=== PATIENT | female | born 1930 | race Caucasian/White ===

== ENCOUNTER → 2016-08-19 | Outpatient (CLI) | payer MEDICARE, OTHER ==
[~2016-08-19] MED LIST: ASPI1TAB PO; CALCTAB29 PO; FISH1000 PO; MAGN250T5 PO; MULT1TAB10 PO; PROBCAP4 PO; TYLE500T78 PO; VITA100037 PO
[2016-08-19 10:30] LABS: MEAN CORPUSCULAR HEMOGLOBIN 31.1 pg (27.0-33.0); MEAN CORPUSCULAR HGB CONC 32.8 g/dl (32.0-36.5); MEAN CORPUSCULAR VOLUME 94.8 fl (80.0-96.0); RED CELL DISTRIBUTION WIDTH 11.6 % (11.5-14.5); WHITE BLOOD COUNT 6.8 K/mm3 (4.0-10.0)
[2016-08-19 10:54] LABS: ALBUMIN 3.5 GM/DL (3.2-5.2); ALBUMIN/GLOBULIN RATIO 1.17 (1.00-1.93); ALKALINE PHOSPHATASE 51 U/L (45-117); ALT/SGPT 19 U/L (12-78); ANION GAP 7 MEQ/L (8-16); AST/SGOT 21 U/L (15-37); BILIRUBIN,TOTAL 0.4 MG/DL (0.2-1.0); BLOOD UREA NITROGEN 18 MG/DL (7-18); CALCIUM LEVEL 9.1 MG/DL (8.8-10.2); CARBON DIOXIDE LEVEL 32 MEQ/L (21-32); CHLORIDE LEVEL 102 MEQ/L (98-107); CREATININE FOR GFR 0.74 MG/DL (0.55-1.02); GLOMERULAR FILTRATION RATE > 60.0 (>32); GLUCOSE, FASTING 94 MG/DL (83-110); SODIUM LEVEL 141 MEQ/L (136-145); TOTAL PROTEIN 6.5 GM/DL (6.4-8.2)
[2016-08-19 11:02] LABS: INR 0.93
--- NOTE | 2016-08-19 11:10 | REP ---
Chest x-ray: Two views. History: Tachycardia. Diverticulitis. Comparison chest x-ray is from August 10, 2013. Findings: The lungs are symmetrically aerated and clear. The pleural angles are sharp. Heart is not enlarged. Pulmonary vasculature is not increased. There are minimal degenerative changes in the thoracic spine. No other bony abnormality is appreciated. Impression: No active disease. Signed by Doc Milan MD 08/19/2016 02:23 P
--- NOTE | 2016-08-19 23:13 | ECGEPIP ---
Stationary ECG Study [facility] Test Date: 2016-08-19 Pat Name: RADHA MERCEDES Department: Room: - Gender: F [employer] Agent: : [id number] Requested By: Yari Del Real Order Number: [id number] Reading MD: Obie Harris Measurements Intervals Man Rate: 64 P: 78 DC: 185 QRS: 47 QRSD: 80 T: 63 QT: 400 QTc: 413 Interpretive Statements SINUS RHYTHM POSSIBLE LEFT ATRIAL ENLARGEMENT POSSIBLE LEFT VENTRICULAR HYPERTROPHY POSSIBLE SEPTAL MYOCARDIAL INFARCTION, OF INDETERMINATE AGE NO PRIOR Electronically Signed On 08-19-2016 23:12:43 EST by Obie Harris
== END | disposition home or self-care (01) ==
LOC: M ADMPAT 09:01 → EDSTATUS 09:30
PROVIDERS: ATTEND Orthopaedic Surgery
DX: Z01.818 Encounter for other preprocedural examination (principal); M16.11 Unilateral primary osteoarthritis, right hip; R94.31 Abnormal electrocardiogram [ECG] [EKG]; Z79.899 Other long term (current) drug therapy; Z79.01 Long term (current) use of anticoagulants

== ENCOUNTER 2016-08-31 06:59 | Inpatient (IN) | payer MEDICARE, OTHER ==
[2016-08-19 10:09] VITALS: BP 120/60
--- NOTE | 2016-08-27 16:59 | HPE ---
DATE OF ADMISSION: 08/31/2016 ATTENDING PHYSICIAN: Dr. Beavers. CHIEF COMPLAINT: Right hip pain and stiffness. HISTORY: Negra is a pleasant 86-year-old female with progressively worsening right hip pain and stiffness. She has failed to improve with conservative management. She has elected for surgery for her continued symptoms with weightbearing activities and activities of daily living. She has consented for a right total hip arthroplasty be Dr. Beavers. Medical optimization pending with Dr. Villalpando and is not present for review during today's visit. CURRENT MEDICATIONS: Daily multivitamin, calcium, vitamin D, fish oil, daily aspirin, probiotics, Extra Strength Tylenol as needed. ALLERGIES: No known drug allergies. PAST MEDICAL HISTORY: 1. Diverticulitis. 2. Elevated heart rate. PAST SURGICAL HISTORY: 1. Partial hysterectomy. 2. Appendectomy. SOCIAL HISTORY: The patient is a nonsmoker and occasionally consumes alcohol. REVIEW OF SYSTEMS: The patient denies fevers, chills, nausea, vomiting, or diarrhea. She denies shortness of breath or cough. She denies any recent urinary tract infection symptoms. She did have a recent sinus infection but that has cleared up. She does have persistent pain in the right hip with weightbearing activities. PHYSICAL EXAMINATION: Well-nourished, well-developed, pleasant female in no apparent distress. She is walking with the use of a cane, favoring her right side. The skin of the right hip is intact. She does have limited motion and irritability elicited with range of motion at the hip and groin. Her right lower extremity strength is normal. Her calf is soft, nontender to palpation with no palpable cords noted. NECK: Supple without lymphadenopathy or jugular venous distention. No carotid bruits noted. LUNGS: Clear to auscultation bilaterally without rales or wheezes. HEART: Regular rate and rhythm. ABDOMEN: Bowel sounds are present. Abdomen is soft and nontender to palpation. VITAL SIGNS: Height 5 feet, 3-1/2 inches. Weight 107.2 pounds. Temperature 98, blood pressure 110/70, pulse 60, respiratory rate 14. LABORATORY DATA: Chest x-ray shows no acute disease. EKG shows sinus rhythm with possible left atrial enlargement, possible left ventricular hypertrophy, and possible septal VA, age indeterminate. Nasal swabs were notable for positive Moraxella catarrhalis which was treated per protocol. Urinalysis is normal with no growth on urine culture. Comprehensive metabolic profile: Fasting glucose 94, BUN 18, creatinine 0.74, GFR greater than 60, sodium 141, potassium 4, chloride 102, carbon dioxide 32, anion gap decreased at 7, calcium 9.1, AST 21, ALT 19, alkaline phosphatase 51, total bilirubin 0.4, total protein 6.5, albumin 3.5, albumin globulin ratio 1.17. Complete blood count: WBC 6.8, RBC 4.32, hemoglobin 13.4, hematocrit 40.9, platelet count 233, prothrombin time 12.6, INR 0.93, erythrocyte sedimentation rate 12. DIAGNOSIS: Symptomatic osteoarthritis of the right hip. X-rays off the right hip notable for end-stage degenerative changes. PLAN: The patient has consented for a right total hip arthroplasty by Dr. Beavers. JOSE
[~2016-08-31] VITALS: Ht 162.6 cm; Wt 49.4 kg
[2016-08-31] MEDS ORDERED: LR 1,000 ML IV SCH ×3 (07:30→12:30)
[2016-08-31] MEDS ORDERED: ACETAMINOPHEN 500 MG TAB PO ONE (08:00)
[2016-08-31] MEDS ORDERED: MUPIROCIN 2% SCH (09:00)
[2016-08-31] MEDS ORDERED: [UNRECOGNIZED DRUG - OTHER] PO SCH (09:00)
[2016-08-31] MEDS ORDERED: EPINEPHrine INJ 1 MG/ML 1ML VIAL/AMP As Ordered ONE (09:25)
[2016-08-31] MEDS ORDERED: ceFAZolin 1GM INJ (J0690) As Ordered ONE (09:25)
[2016-08-31] MEDS ORDERED: ONDANSETRON 4MG/2ML VIAL (J2405) As Ordered ONE (10:41)
[2016-08-31] MEDS ORDERED: LIDOCAINE 2% INJ 100 MG/5 ML SDV (FOR ANES.) As Ordered ONE (10:41)
[2016-08-31] MEDS ORDERED: PROPOFOL 200 MG/20 ML VIAL As Ordered ONE (10:41)
[2016-08-31] MEDS ORDERED: ePHEDrine SULFATE 25 MG/5 ML(5MG/ML) SYRINGE As Ordered ONE (10:43)
[2016-08-31] MEDS ORDERED: MORPHINE PCA 1MG/ML 100ML CADD As Ordered ONE (11:58)
[2016-08-31] MEDS ORDERED: ACETAMINOPHEN TAB 650MG DOSE (2X325MG) PO PRN (12:30)
[2016-08-31] MEDS ORDERED: EPIDURAL/PCA KEYS XX PRN (12:30)
[2016-08-31] MEDS ORDERED: NALOXONE INJ 0.4 MG/1 ML VIAL (J2310) IV PRN (12:30)
[2016-08-31] MEDS ORDERED: ONDANSETRON 4MG/2ML VIAL (J2405) IV PRN ×2 (12:30)
[2016-08-31] MEDS ORDERED: fentaNYL 100 MCG/2 ML INJECTION (J3010) IV PRN (12:30)
[2016-08-31] MEDS ORDERED: diphenhydrAMINE INJ 50MG/ML VIAL (J1200) IV PRN (12:30)
[2016-08-31] MEDS ORDERED: FLEET ENEMA PR PRN (12:30)
[2016-08-31] MEDS ORDERED: MORPHINE PCA 1MG/ML 100ML CADD IV PRN (12:30)
[2016-08-31] MEDS ORDERED: NALBUPHINE HCL 10 MG/ML AMP (J2300) IV PRN (12:30)
[2016-08-31] MEDS ORDERED: MORPHINE 2 MG/ML 1ML SYRINGE IV PRN (12:30)
[2016-08-31] MEDS ORDERED: ceFAZolin 1GM INJ (J0690) IR ONE (14:09)
[2016-08-31 15:10] VITALS: BP 126/58
--- NOTE | 2016-08-31 15:28 | CR ---
DATE OF CONSULTATION: 08/31/2016 CONSULTATION REPORT FOR: Dr. Beavers REASON FOR CONSULTATION: Medical management. PRIMARY CARE PROVIDER: Dr. Villalpando HISTORY OF PRESENT ILLNESS: This patient is an 86-year-old female with a past medical history significant for osteoporosis who presented to [facility] on 08/31/2015 for a right hip replacement. The patient tolerated the surgery well. No complications. The hospitalist team is called for consultation. ALLERGIES: PROCHLORPERAZINE. PAST MEDICAL HISTORY: 1. Osteoporosis. 2. Diverticulitis in 2013. PAST SURGICAL HISTORY: 1. Right eye cataract surgery. 2. Hysterectomy. SOCIAL HISTORY: Denies smoking. Drinks wine intermittently. No recreational drug use. REVIEW OF SYSTEMS: GENERAL: No fever. No chills. HEENT: No vision changes. No auditory changes. CARDIOVASCULAR: No chest pain. No palpitations. RESPIRATORY: No wheezes, cough, or sputum production. GASTROINTESTINAL: No nausea. No vomiting. No abdominal pain. MUSCULOSKELETAL: The patient had a right hip replacement today. Otherwise, no joint pain or muscle pain. NEUROLOGIC: No numbness or tingling. PHYSICAL EXAMINATION: VITAL SIGNS: Temperature is 98, pulse is 80, respiratory rate is 16, blood pressure 115/56, pulse oximetry is 99% with two liter nasal cannula. GENERAL: No sign of acute distress, alert and oriented times three. HEENT: Normocephalic, atraumatic. Extraocular motor grossly intact. CARDIOVASCULAR: Positive S1, S2, regular rate. LUNGS: Clear to auscultation bilaterally. ABDOMEN: Soft, nontender, nondistended. Bowel sounds present. No rebound. No guarding. EXTREMITIES: Sequential compression device and thromboembolic-deterrent stockings (TEDS) in place. No lower extremity edema. No sign of cyanosis. LABORATORY DATA: WBC 6.8, hemoglobin is 13.4, hematocrit is 40.9, platelet count is 233. Sodium is 141, potassium 4, chloride is 102, carbon dioxide 32, BUN 18, creatinine 0.74, GFR greater than 60, fasting glucose 94, calcium is 9.1, total bilirubin is 0.4, AST is 21, ALT is 19, alkaline phosphatase is 51, total protein is 6.5, albumin is 3.5. ASSESSMENT AND PLAN: 1. Right hip replacement. The procedure was done by Dr. Beavers on 08/31/2016. We will refer the patient's anticoagulation, diet, exercise level, and pain control to the primary team. 2. History of osteoporosis. 3. History of diverticulitis in 2013. Currently, no gastrointestinal (GI) symptoms. 4. Deep vein thrombosis (DVT) prophylaxis, per primary team.
[2016-08-31 15:40] VITALS: BP 120/58
[2016-08-31 16:40] VITALS: BP 123/57
[2016-08-31] MEDS ORDERED: WARFARIN SOD 5 MG TAB PO ONE (17:00)
[2016-08-31] MEDS: LR 1,000 ML IV SCH (17:14)
[2016-08-31 17:40] VITALS: BP 120/60
[2016-08-31 18:40] VITALS: BP 120/58
--- NOTE | 2016-08-31 18:57 | RO ---
DATE OF PROCEDURE: 08/31/2016 PREOPERATIVE DIAGNOSIS: Right hip degenerative arthritis. POSTOPERATIVE DIAGNOSIS: Right hip degenerative arthritis. PROCEDURE: Right total hip arthroplasty using a size 7 standard offset with a +5 neck and a 36 head with a 54 Gription sector cup. Prosthesis was a [employer] made by [employer]. SURGEON: Yari Beavers MD INDUSTRIAL SALES REPRESENTATIVE: LIBERTY Solo ANESTHESIA: Spinal. ESTIMATED BLOOD LOSS: 200 mL. COMPLICATIONS: None. SPECIMENS: Femoral head. DESCRIPTION OF PROCEDURE: After antibiotics were given intravenously preoperatively and a successful spinal anesthetic was induced, she was placed in a lateral decubitus position after a Busch catheter was placed. The [place] hip positioner was utilized, down leg well padded, especially the peroneal nerve and an axillary roll was utilized. Her right hip area was prepped and draped in the usual sterile fashion. After an appropriate time out, a longitudinal incision was made for direct lateral approach to the hip. Bovie cautery was used to coagulate crossing vessels down to the tensor fascia. The tensor fascia was divided in line with the skin incision. Then we split the gluteus medius, anterior one-third, posterior two-third junction. We carefully dissected the underlying gluteus minimus and hip capsule, then carefully dissected it off the trochanter proximally as we externally rotated and dislocated the hip anteriorly. Then we put the hip in a leg bag anteriorly. The starter reamer was placed in the piriformis fossa followed by the canal finding reamer and then the lateralizing reamer. Then we reamed up to a size 7 reamer, proximal neck osteotomy was performed. Box osteotome was placed to set version, and then we used the broach to broach up to a size 7. Calcar planar was used. We then exposed the acetabulum, performed a 360 degree excision of the labrum and the posterior inferior capsule and then began reaming starting at 48 mm and we advanced up to 53. 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 We then asked for the real Gription cup and used the extramedullary alignment jig to be sure that we had appropriate version and flexion of the cup and then the cup was applied and it fit actually very nicely. It bottomed out nicely, no need for secondary screw fixation was felt needed. And thus I placed the central hole eliminator, then placed the real polyethylene cup and it seated nicely after irrigating out the acetabulum. Then I exposed the proximal femur, irrigated out the femur, placed a #7 broach and then reduced the hip with a +5 x 36 head. It had very good stability in flexion internal rotation and extension external rotation. At the very extreme of external rotation, her neck would just touch the posterior aspect of the acetabulum but it was quite extreme. She had very good stability with flexion and internal rotation and with adduction. There was just some trace telescoping, thus I did not think more leg length was needed or a higher offset stem. At this point, we elected to go with those trial components. All of the trial components were removed. We copiously irrigated out the femoral canal and placed the real #7 stem. We dried the trunnion and placed the 36 ball with a +5 neck and then reduced the hip, irrigated, then closed the gluteus medius and minimus and anterior capsule back anatomically to the trochlea with interrupted #1 PDS sutures, irrigating between layers, and closed the extensor fascia with interrupted #1 PDS sutures, irrigating between layers and closed the subdermal tissues with interrupted #2-0 PDS sutures and the skin was closed with khushbu. Covered by Adaptic dry sterile bulky dressing. She was then turned supine and then transferred to the recovery room in stable condition. There were no intraoperative complications. Braeden Briscoe, my assistant child care teacher, was critical to the success of this procedure by helping to control the soft tissue retractions and helped to reduce and dislocate the hip several times throughout the operation, helped to close the wound, helped to prepare the patient preoperatively, amongst many other tasks.
[2016-08-31 22:00] VITALS: BP 102/50
[2016-08-31] MEDS: TMP DS PO SCH (22:28)
[2016-08-31] MEDS: SULFAMETHOXAZOLE PO SCH (22:28)
[2016-08-31] MEDS: MUPIROCIN TOP SCH (22:29)
[2016-09-01] MEDS: LR 1,000 ML IV SCH (02:31)
[2016-09-01 06:00] VITALS: BP 108/50
[2016-09-01] MEDS ORDERED: PERCOCET 5MG/325MG TAB PO PRN (06:45)
[2016-09-01] MEDS ORDERED: PERCOCET 5MG/325MG TAB PO ONE (06:45)
[2016-09-01] MEDS ORDERED: ONDANSETRON 4 MG TAB (S0181) PO PRN (06:45)
[2016-09-01 07:10] LABS: MEAN CORPUSCULAR HEMOGLOBIN 31.2 pg (27.0-33.0); MEAN CORPUSCULAR HGB CONC 33.3 g/dl (32.0-36.5); MEAN CORPUSCULAR VOLUME 93.7 fl (80.0-96.0); RED CELL DISTRIBUTION WIDTH 11.8 % (11.5-14.5); WHITE BLOOD COUNT 9.8 K/mm3 (4.0-10.0)
[2016-09-01 07:20] LABS: INR 1.58
[2016-09-01 07:23] LABS: ANION GAP 9 MEQ/L (8-16); BLOOD UREA NITROGEN 9 MG/DL (7-18); CALCIUM LEVEL 8.3 MG/DL (8.8-10.2); CARBON DIOXIDE LEVEL 29 MEQ/L (21-32); CHLORIDE LEVEL 100 MEQ/L (98-107); CREATININE FOR GFR 0.78 MG/DL (0.55-1.02); GLOMERULAR FILTRATION RATE > 60.0 (>32); GLUCOSE, FASTING 130 MG/DL (83-110); POTASSIUM SERUM 4.4 MEQ/L (3.5-5.1); SODIUM LEVEL 138 MEQ/L (136-145)
[2016-09-01] MEDS: PERCOCET 5MG/325MG TAB PO PRN ×2 (09:00→20:03)
[2016-09-01] MEDS: MOM 30ML SUSPENSION UDC PO SCH (09:42)
[2016-09-01] MEDS: MIRALAX *UNIT DOSE* 17GM PACKET PO SCH (09:42)
[2016-09-01] MEDS: SULFAMETHOXAZOLE PO SCH (09:43)
[2016-09-01] MEDS: TMP DS PO SCH (09:43)
[2016-09-01] MEDS: SENOKOT S TAB PO SCH ×2 (09:43→20:03)
[2016-09-01] MEDS: MUPIROCIN TOP SCH (09:45)
[2016-09-01 10:00] VITALS: BP 117/54
--- NOTE | 2016-09-01 10:40 | REP ---
RIGHT HIP, THREE VIEWS: HISTORY: Hip replacement. The patient is status post right hip arthroplasty. There is no acute fracture or dislocation. Subcutaneous air and surgical khushbu are present in the overlying soft tissue. IMPRESSION: The patient is status post right hip arthroplasty. There is anatomic alignment. Signed by Ahmet Golden MD 09/01/2016 10:43 A
[2016-09-01 14:00] VITALS: BP 98/55
--- NOTE | 2016-09-01 14:15 | IPNPDOC ---
Text Note Date of Service The patient was seen on 09/01/16. NOTE Subjective: Patient is an 86 year old female with a PMHx of osteoporosis who presented for an elective right hip replacement. Patient was seen and examined at the bedside. She has no new complaints today. Objective: Vitals (See below) General: Lying in bed, no acute distress, comfortable, AAOx3 HEENT: NC, AT CVS: RRR, +S1S2 Lungs: Fair air entry b/l, -w/r/r Abdomen: Soft, ND, NT, +BSx4 Extremities: +PPx4, -edema, -calf tenderness Assessment and plan: 1. Right hip replacement - Patient is tolerating surgery - will get physical therapy evaluation today - pain control by primary team 2. Hx of osteoporosis 3. Hx of diverticulosis in 2013 - no symptoms at this time 4. DVT prophylaxis - as per primary team VS,Fishbone, I+O VS, Fishbone, I+O Laboratory Tests 09/01/16 06:46 Calcium Level 8.3 L, Red Blood Count 3.49 L, Mean Corpuscular Volume 93.7, Mean Corpuscular Hemoglobin 31.2, Mean Corpuscular Hemoglobin Concent 33.3, Red Cell Distribution Width 11.8 Vital Signs Date Time Temp Pulse Resp B/P Pulse Ox O2 Delivery O2 Flow Rate FiO2 09/01/16 10:00 97.7 74 16 117/54 96 Room Air 08/31/16 19:50 2.0 I&O- Last 24 Hours up to 6 AM 09/01/16 06:00 Intake Total 3790 ml Output Total 700 ml Balance 3090 ml MOJGAN HERRERA MD Sep 01, 2016 14:15
[2016-09-01] MEDS ORDERED: WARFARIN SOD 5 MG TAB PO ONE (17:00)
[2016-09-01] MEDS ORDERED: WARFARIN SOD 2.5 MG TAB PO ONE (17:00)
[2016-09-01 22:00] VITALS: BP 115/50
[2016-09-02 06:00] VITALS: BP 98/60
[2016-09-02] MEDS ORDERED: ONDA1TAB15 PO (06:46)
[2016-09-02] MEDS ORDERED: PERCOCET PO (06:46)
[2016-09-02] MEDS ORDERED: MAPA325T2 PO (06:46)
[2016-09-02] MEDS ORDERED: MILKSUS PO (06:46)
[2016-09-02] MEDS ORDERED: SENN1TAB2 PO (06:46)
[2016-09-02] MEDS ORDERED: FLEEENE4 PR (06:46)
[2016-09-02] MEDS ORDERED: PEG1POW PO (06:46)
[2016-09-02 06:57] LABS: MEAN CORPUSCULAR HEMOGLOBIN 31.4 pg (27.0-33.0); MEAN CORPUSCULAR HGB CONC 33.1 g/dl (32.0-36.5); MEAN CORPUSCULAR VOLUME 94.7 fl (80.0-96.0); RED CELL DISTRIBUTION WIDTH 12.2 % (11.5-14.5); WHITE BLOOD COUNT 9.4 K/mm3 (4.0-10.0)
[2016-09-02 07:00] LABS: INR 2.4
[2016-09-02 07:15] LABS: ANION GAP 9 MEQ/L (8-16); BLOOD UREA NITROGEN 10 MG/DL (7-18); CALCIUM LEVEL 8.4 MG/DL (8.8-10.2); CARBON DIOXIDE LEVEL 29 MEQ/L (21-32); CHLORIDE LEVEL 102 MEQ/L (98-107); CREATININE FOR GFR 0.75 MG/DL (0.55-1.02); GLOMERULAR FILTRATION RATE > 60.0 (>32); GLUCOSE, FASTING 108 MG/DL (83-110); POTASSIUM SERUM 4.6 MEQ/L (3.5-5.1); SODIUM LEVEL 140 MEQ/L (136-145)
[2016-09-02] MEDS: SENOKOT S TAB PO SCH (09:00)
[2016-09-02] MEDS: MIRALAX *UNIT DOSE* 17GM PACKET PO SCH (10:20)
[2016-09-02] MEDS: PERCOCET 5MG/325MG TAB PO PRN (10:21)
[2016-09-02] MEDS: MOM 30ML SUSPENSION UDC PO SCH (10:21)
[2016-09-02 10:26] VITALS: BP 105/54
--- NOTE | 2016-09-07 07:40 | DSES ---
DATE OF ADMISSION: 08/31/2016 DATE OF DISCHARGE: 09/02/2016 ADMISSION DIAGNOSIS: Osteoarthritis right hip. OTHER DIAGNOSES: History of diverticulosis, osteoporosis, elevated heart rate. DISCHARGE DIAGNOSIS: Osteoarthritis right hip, status post right total hip arthroplasty. ATTENDING PHYSICIAN: Yari Beavers MD HISTORY: This is a pleasant 86-year-old female patient with progressively worsening right hip pain and stiffness. She failed to improve with conservative management. She was admitted for elective hip replacement on right side. OPERATION PERFORMED: Right total hip arthroplasty. HOSPITAL COURSE: The patient was admitted on day of surgery, underwent a right total hip arthroplasty which was uneventful. During the postoperative period she did struggle with the requirements for physical therapy and her goals for ambulation. Due to her continued struggles with the requirements of physical therapy, she was discharged to the [facility] rehabilitation unit for further rehab and treatment. On day of discharge her pain was controlled. She will use oral pain medications for pain control. She will use adjusted dose Coumadin and HIRAM stockings for 30 days postoperative for deep venous thrombosis (DVT) prophylaxis. She is weightbearing as tolerated on the right lower extremity. She will follow up in our office in 10-14 days for surgical followup. She will resume her preoperative medications and diet. She was given instructions to include but not limited to wound monitoring, activity limitations and her total hip precautions. Please refer to the medical record further details.
== END 2016-09-02 11:45 | DRG 470 ==
LOC: M OR 06:59 → M MS5PR 15:05
PROVIDERS: ADMIT Orthopaedic Surgery; ATTEND Orthopaedic Surgery
PROC: 0SR902A Replacement of Right Hip Joint with Metal on Polyethylene Synthetic Substitute, Uncemented, Open Approach (ICD-10-PCS; principal; 2016-08-31 09:40)
DX: M16.11 Unilateral primary osteoarthritis, right hip (principal); R26.9 Unspecified abnormalities of gait and mobility; M81.0 Age-related osteoporosis without current pathological fracture; Z79.82 Long term (current) use of aspirin; Z79.899 Other long term (current) drug therapy

== ENCOUNTER 2016-09-02 11:21 | Inpatient (IN) | payer MEDICARE, OTHER ==
[~2016-09-02] VITALS: Ht 161.3 cm; Wt 51.5 kg
[~2016-09-02 11:21] MED LIST changes: +FLEEENE4 PR; +MAPA325T2 PO; +MILKSUS PO; +ONDA1TAB15 PO; +PEG1POW PO; +PERCOCET PO; +SENN1TAB2 PO
[2016-09-02 11:45] VITALS: BP 99/53
[2016-09-02] MEDS ORDERED: PERCOCET 5MG/325MG TAB PO PRN ×2 (13:00)
[2016-09-02] MEDS ORDERED: MOM 30ML SUSPENSION UDC PO PRN (13:00)
[2016-09-02] MEDS ORDERED: MIRALAX *UNIT DOSE* 17GM PACKET PO PRN (13:00)
--- NOTE | 2016-09-02 13:57 | HPEPDOC ---
Barrel Bung Remover And Dumper Note ADMISSION H&P + EDISON DATE OF ADMISSION: 09/02/2016 DATE OF SERVICE: 09/02/2016 IDENTIFICATION STATEMENT: Patient is an 86-year-old woman status post right total hip arthroplasty admitted for copper incidents of integrated inpatient rehabilitation. Thereve been no significant changes in the patients condition since the preadmission screening. HISTORY OF PRESENT ILLNESS: Patient is an 86-year-old woman with a history of osteoporosis, diverticulitis and osteoarthritis who was experiencing progressive right hip pain due to advanced degenerative joint disease. Symptoms were refractory to conservative treatment and interfering with patients functional ability. On 06/30/2017 the patient underwent right total hip arthroplasty postoperative course is notable for anemia, hyperglycemia and hypocalcemia. Due to significant decline in the patients baseline functional status and need for continued medical care, recommendation was for acute rehabilitation. On 09/02/2016 patient was deemed stable for discharge to [facility] inpatient rehabilitation unit. On evaluation the patient today she reports feeling well. She has not yet moved her bowels since being in the hospital. She reports moderate to severe pain in the right hip with activity, mostly remits with rest. She reports urinary frequency, increased from her baseline, but denies any chills, dysuria or incontinence. PAST MEDICAL HISTORY: Diverticulosis with 2 bouts of diverticulitis in the last 4 years Osteoporosis Osteoarthritis Panic attacks PAST SURGICAL HISTORY: Total hysterectomy (still has bilateral ovaries) Appendectomy ALLERGIES: Prochlorperazine MEDICATIONS: Coumadin dose daily X line milk of magnesia 30 mL by mouth daily Senokot-S 1 by mouth twice a day Polyethylene glycol 1 packet by mouth daily Acetaminophen 650 mg by mouth every 4 hours when necessary Percocet 1-2 tabs by mouth every 4 hours when necessary Zofran 4 mg by mouth every 4 hours when necessary Fleets enema 1 per rectum daily as needed FAMILY HISTORY: She has 3 children, 2 daughters and one son alive and well. Her , suffered from multiple sclerosis. SOCIAL HISTORY: Patient lives alone in a single-story house with full basement, there are steps, but she does have a ramp. She states she tried smoking once as a youngster, but didnt like it and has never smoked since. She reports occasional alcohol use sliding an occasional glass of wine or beer. She denies any illicit drug use, past or present. Review of Systems: General: no chills, +fatigue, no weight changes. Eyes: no change of vision, + bifocals. Ears, Nose & Throat: + hearing loss with hearing aids, no sore throat or nasal discharge. Cardiovascular: Episodic palpitations for which she underwent a cardiac evaulation with Dr. Harris. No chest pain, claudication, edema, syncopal episodes. Pul: no cough, SOB GI: +constipation; no abdominal pain, GERD, vomiting, BRBPR/tarry stools, incontinence. Genitourinary: +frequency. Gynecological: no vaginal bleeding, post-menopausal . Musculoskeletal: History of neck pain from whiplash injury that resolved: Denies chronic back/neck, no muscle pain. Neurological: no numbness, paresthesias, no tremors, progressive weakness, seizures, AGUILLON. Hematological: No bleeding disorders. Skin: no rashes. Psychiatric: no depression or behavioral issues. VITAL SIGNS: Temperature 98.5F, pulse 85, respiratory rate of 18, blood pressure 99/53, 93% saturation on room air. PHYSICAL EXAMINATION: GENERAL: Well nourished, well developed, sitting up in bed, no acute distress. HEENT: Normocephalic, atraumatic. No facial droop. No jugular venous distention (JVD). PERRL, EOMI CARDIOVASCULAR: S1, S2, regular rate. Mild right lower limb swelling, no right calf tenderness. No left lower limb edema or calf tenderness. LUNGS: Clear to auscultation bilaterally no wheezing, rhonchi or rales ABDOMEN: Soft, nontender, nondistended. Positive normoactive bowel sounds throughout. MUSCULOSKELETAL: Manual muscle testin/5 strength bilateral upper limbs in all major muscle groups. 5/5 strength left lower limb in all major muscle groups. 1/5 right hip flexors, 4/5 right knee extension, 5/5 right knee flexion , dorsiflexion and plantar flexion. Sensation: Intact to soft touch bilateral upper and lower limbs. Deep tendon reflexes: Unable to elicit patellar biceps bilaterally NEUROLOGICAL: Alert and oriented x 3. Answers all questions appropriately able to follow commands without difficulty. SKIN: Right lateral hip and thigh surgical incision covered with OptiFoam (not removed), no visible drainage LABORATORY DATA: 09/02/2016: WBC count 9.4, hemoglobin 10.7, hematocrit 32.4, platelets 188 sodium 140, potassium 4.6, chloride 102, carbon dioxide 29, he UN 10, creatinine 0.75, GFR greater than 60.0, glucose 108 (down from 1:30) calcium 8.4. 09/02/2016: PT INR 26.2/2.40 IMAGING: Hip x-ray 09/01/2016: status/ post total hip arthroplasty. FUNCTIONAL STATUS: Premorbid: Independent with ADLs and ambulation. Drove regularly. On Admission: Min assist for ambulation 40 feet with rolling walker ASSESSMENT AND PLAN: 1. Advanced degenerative joint disease of the right hip status post total hip arthroplasty with resulting gait abnormality and dysfunctional ADLs: Patient will undergo thorough physical and occupational therapy evaluations followed by daily intensive therapy. Rehabilitation nursing for bladder, bowel, medication management and wound care. 2. DVT prophylaxis: Coumadin to be dose daily by RAIZA Mays of the orthopedic service. Coumadin on hold tonight for supratherapeutic INR. Will provide SCD and HIRAM hose. 3. Constipation: Patient has been taking Senokot-S and received a dose of milk of magnesia O Max. Well change her bowel regimen to Colace and senna scheduled, will add MiraLAX on an as-needed basis. Will continue milk of magnesia on an as-needed basis. Further adjustments as needed. 4. Anemia, acute blood loss: Morning labs. Iron studies pending results. 5. Urinary frequency: Patient currently afebrile without leukocytosis. As stated above Will obtain morning labs with workup as indicated. 6. Hypotension: Patient with 2 readings of relative hypotension. She is currently not on anti-hypertensive medication. Will monitor blood pressure over the next 24 hours along with intake and output. Work-up/treatment as indicated. 7. Pain: Patient reporting moderate to severe pain. Will continue her on her current regimen of acetaminophen along with Percocet on as-needed basis and monitor pain levels closely with medication adjustments as indicated. Will provide her intermittent ice to the right lateral hip. 8. Nutrition: Will obtain a prealbumin human with morning labs. Will also provide patient with ensure supplements. POST ADMISSION PHYSICIAN EVALUATION: On evaluation of the patient today there' ve been no significant medical issues or functional changes as compared to those noted in the preadmission screening document. This patient's inpatient rehabilitation remains necessary in light of the above conditions. The patient' s medical condition requires specialized care with physicians specially trained in physical medicine rehabilitation. The patient is capable motivated to participate in a minimum of 3 hours of therapy daily, 5 days minimum per week, and requires intensive inpatient rehabilitation to improve their functional status so that they can be safely to discharge back to their home. PROGNOSIS: Excellent ESTIMATED LENGTH OF STAY: 7 days. / Vital Signs Vital Sign - Last 24 Hours 09/02/16 11:45 Temp 98.5 Pulse 85 Resp 18 B/P 99/53 Pulse Ox 93 O2 Delivery Room Air Home Medications Scheduled (Senna Plus 8.6-50 mg) 1 Tab Tab 1 TAB PO BID Calcium/Vitamin D (Calcium 500/Vitamin D 500-125 mg-Unit) 1 Tab Tab 500 MG PO DAILY (Reported) Fish Oil (Fish Oil) 1,000 Mg Cap 1,000 MG PO DAILY (Reported) Lactobacillus Acidophilus (Probiotic) 1 Cap Cap 1 CAP PO DAILY (Reported) Magnesium Oxide (Magnesium) 250 Mg Tab 250 MG PO DAILY (Reported) Milk Of Magnesia (Milk of Magnesia) 1,200 Mg/15 Ml Anastasia 30 ML PO DAILY Multivitamins (Multivitamin Adults) 1 Tab Tab 1 TAB PO DAILY (Reported) Polyethylene Glycol (Peg 3350) 1 Pkt Pow 1 PKT PO DAILY Vitamin D (Vitamin D) 1,000 Unit Cap 2,000 UNIT PO DAILY (Reported) Scheduled PRN Acetaminophen (Tylenol Extra Strength) 500 Mg Tab 500 MG PO PRN PRN PRN PAIN ( Reported) Acetaminophen (Mapap) 325 Mg Tab 650 MG PO Q4HP PRN PRN TEMP >100 Ondansetron HCl (Ondansetron HCl) 4 Mg Tab 4 MG PO Q4HP PRN PRN NAUSEA OR VOMITING Oxycodone/Acetaminophen (Percocet 5MG/325MG Tablet) 1 Tab Tab 2 TAB PO Q4HP PRN PRN SEVERE PAIN (PS 8-10) Oxycodone/Acetaminophen (Percocet 5MG/325MG Tablet) 1 Tab Tab 1 TAB PO Q4HP PRN PRN MILD/MODERATE PAIN (PS 1-7) Sodium Phosphate/Biphosphate (Fleet Enema 7-19 gm/118Ml) 1 Emmy Emmy 0 EA [place] DAILYPRN PRN PRN CONSTIPATION Allergies Coded Allergies: Prochlorperazine (Verified Allergy, Severe, tongue swells, 08/19/16) ANGY CA MD Sep 02, 2016 13:57
[2016-09-02 14:00] VITALS: BP 99/48
[2016-09-02] MEDS: PANTOPRAZOLE 40MG TAB (PROTONIX) PO SCH (14:49)
[2016-09-02] MEDS ORDERED: MAGNESIUM CITRATE 300 ML BTL PO ONE (15:00)
[2016-09-02] MEDS ORDERED: WARFARIN SOD 5 MG TAB PO ONE (17:00)
[2016-09-02] MEDS: LACTOBACILLUS ACIDOPHILUS CAP (BACID) PO SCH (17:13)
[2016-09-02 20:00] VITALS: BP 114/54
[2016-09-02] MEDS: SENNA 8.6 MG TAB (SENOKOT) PO SCH (20:42)
[2016-09-02] MEDS: DOCUSATE SODIUM 100 MG CAP PO SCH (20:42)
[2016-09-03 06:00] VITALS: BP 91/34
[2016-09-03 07:30] VITALS: BP 92/40
[2016-09-03 07:34] LABS: MEAN CORPUSCULAR HEMOGLOBIN 31.7 pg (27.0-33.0); MEAN CORPUSCULAR HGB CONC 33.3 g/dl (32.0-36.5); MEAN CORPUSCULAR VOLUME 95.1 fl (80.0-96.0); RED CELL DISTRIBUTION WIDTH 12.1 % (11.5-14.5); WHITE BLOOD COUNT 7.9 K/mm3 (4.0-10.0)
[2016-09-03 07:38] LABS: INR 2.02
[2016-09-03 07:55] LABS: ANION GAP 4 MEQ/L (8-16); BLOOD UREA NITROGEN 9 MG/DL (7-18); CALCIUM LEVEL 8.1 MG/DL (8.8-10.2); CARBON DIOXIDE LEVEL 32 MEQ/L (21-32); CHLORIDE LEVEL 103 MEQ/L (98-107); CREATININE FOR GFR 0.63 MG/DL (0.55-1.02); GLOMERULAR FILTRATION RATE > 60.0 (>32); GLUCOSE, FASTING 99 MG/DL (83-110); POTASSIUM SERUM 4.3 MEQ/L (3.5-5.1); SODIUM LEVEL 139 MEQ/L (136-145)
[2016-09-03] MEDS: DOCUSATE SODIUM 100 MG CAP PO SCH ×2 (09:00→21:00)
[2016-09-03] MEDS: LACTOBACILLUS ACIDOPHILUS CAP (BACID) PO SCH ×2 (10:06→17:45)
[2016-09-03] MEDS: PANTOPRAZOLE 40MG TAB (PROTONIX) PO SCH (10:06)
[2016-09-03] MEDS: ACETAMINOPHEN TAB 650MG DOSE (2X325MG) PO PRN (10:09)
[2016-09-03] MEDS ORDERED: SODIUM CHLORIDE NASAL 0.65% SPRAY BTL (OCEAN) PRN (12:00)
--- NOTE | 2016-09-03 12:29 | IPNPDOC ---
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 PAST MEDICAL HISTORY: Diverticulosis with 2 bouts of diverticulitis in the last 4 years Osteoporosis Osteoarthritis Panic attacks Colonic Polyps PAST SURGICAL HISTORY: Total hysterectomy (still has bilateral ovaries) Appendectomy ALLERGIES: Prochlorperazine MEDICATIONS: Coumadin dose daily X line milk of magnesia 30 mL by mouth daily Senokot-S 1 by mouth twice a day Polyethylene glycol 1 packet by mouth daily Acetaminophen 650 mg by mouth every 4 hours when necessary Percocet 1-2 tabs by mouth every 4 hours when necessary Zofran 4 mg by mouth every 4 hours when necessary Fleets enema 1 per rectum daily as needed SUBJECTIVE: Patient complaints of dry nose. She moved her bowel multiple times since last night. She has no other complaints. She denies any chest pain, shortness of breath, nausea vomiting dysuria. She states pain is adequately controlled with current regimen although she thinks she would prefer just to use the extra strength Tylenol. VITAL SIGNS: Temperature 96.1F, pulse of 70, respiratory rate of 17, blood pressure 92/40, 95% saturation on room air. PHYSICAL EXAMINATION: GENERAL: Well nourished, well developed, sitting up in chair, no acute distress. HEENT: Normocephalic, atraumatic. PERRL, EOMI CARDIOVASCULAR: S1, S2, regular rate. Mild right lower limb swelling, no right calf tenderness. No left lower limb edema or calf tenderness. LUNGS: Clear to auscultation bilaterally no wheezing, rhonchi or rales ABDOMEN: Soft, nontender, nondistended. Positive normoactive bowel sounds throughout. MUSCULOSKELETAL: Manual muscle testin/5 strength bilateral upper limbs in all major muscle groups. 5/5 strength left lower limb in all major muscle groups. 3-/5 right hip flexors, 4/5 right knee extension, 5/5 right knee flexion , dorsiflexion and plantar flexion. NEUROLOGICAL: Alert and oriented x 3. Answers all questions appropriately able to follow commands without difficulty. SKIN: Right lateral hip and thigh surgical incision covered with OptiFoam (not removed LABORATORY DATA: 09/03/2016: reviewed, see below 09/02/2016: WBC count 9.4, hemoglobin 10.7, hematocrit 32.4, platelets 188 sodium 140, potassium 4.6, chloride 102, carbon dioxide 29, he UN 10, creatinine 0.75, GFR greater than 60.0, glucose 108 (down from 1:30) calcium 8.4. 09/02/2016: PT INR 26.2/2.40 FUNCTIONAL STATUS: Premorbid: Independent with ADLs and ambulation. Drove regularly. On Admission: Min assist for ambulation 40 feet with rolling walker ASSESSMENT AND PLAN: 1. 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 2. DVT prophylaxis: Coumadin to be dose daily by RAIZA Mays of the orthopedic service. Continue SCD and HIRAM hose. 3. Constipation: Resolved, continue bowel regimen including Colace and senna scheduled, MOM and MiraLAX on an as-needed basis. Adjustments as needed. 4. Anemia, acute blood loss: Hgb ~stable. Monitor periodically. 5. Urinary frequency: Patient continues to be afebrile without leukocytosis. W/ u if situation changes. 6. Hypotension: Persistent, but patient asymptomatic. I have decreased available amount of opioid medication. Encourage oral hydration. Reassess in am , sooner if needed. 7. Pain: Adequately controlled. above, changed available dose of opioid. Continue APAP and intermittent ice. 8. Malnutrition: Prealbumin low. Continue Ensure supplements. / Vital Signs Vital Sign - Last 24 Hours 09/02/16 09/02/16 09/03/16 09/03/16 14:00 20:00 02:33 03:16 Temp 97.3 99.1 Pulse 80 91 Resp 18 18 18 18 B/P 99/48 114/54 Pulse Ox 95 98 O2 Delivery Room Air Room Air 09/03/16 09/03/16 06:00 07:30 Temp 96.1 Pulse 70 Resp 17 B/P 91/34 92/40 Pulse Ox 95 O2 Delivery Room Air Laboratory Data CBC/BMP Laboratory Tests 09/03/16 07:21 Calcium Level 8.1 L, Red Blood Count 3.34 L, Mean Corpuscular Volume 95.1, Mean Corpuscular Hemoglobin 31.7, Mean Corpuscular Hemoglobin Concent 33.3, Red Cell Distribution Width 12.1 Labs 24H Laboratory Tests 2 09/03/16 07:21: Anion Gap 4L, Blood Urea Nitrogen 9, Creatinine 0.63, Sodium Level 139, Potassium Level 4.3, Chloride Level 103, Carbon Dioxide Level 32, Calcium Level 8.1L, Glomerular Filtration Rate > 60.0, Prealbumin 11.0L, Prothromb Time International Ratio 2.02, Prothrombin Time 22.9H Allergies Allergies: Coded Allergies: Prochlorperazine (Verified Allergy, Severe, tongue swells, 08/19/16) Current Medications Current Medications Current Medications Acetaminophen (Tylenol Tab) 650 mg Q4HP PRN PO MILD PAIN (PS 1-4) Last administered on 09/03/16 10:09; Start 09/02/16 at 13:00; Stop 10/02/16 at 12:59 Docusate Sodium (Colace) 100 mg BID PO ; Start 09/02/16 at 21:00; Stop 10/02/16 at 20:59 Lactobacillus Acidophilus (Bacid) 1 ea BIDWM PO Last administered on 09/03/16 10:06; Start 09/02/16 at 18:00; Stop 10/02/16 at 17:59 Magnesium Hydroxide (Milk Of Magnesia) 30 ml DAILYPRN PRN PO CONSTIPATION; Start 09/02/16 at 13:00; Stop 10/02/16 at 12:59 Miscellaneous (Unresolved Clarification Entry) SEE LABEL COMMENTS UNRESOLVED XX ; Start 09/02/16 at 00:01; Stop 09/02/16 at 13:08; Status DC Oxycodone/ Acetaminophen (Percocet 5mg/ 325mg Tablet) 1 tab Q4HP PRN PO MODERATE/SEVERE PAIN (PS 5-10) Last administered on 09/03/16 02:33; Start 09/02 at 13:00 Oxycodone/ Acetaminophen (Percocet 5mg/ 325mg Tablet) 2 tab Q4HP PRN PO SEVERE PAIN (PS 8-10); Start 09/02/16 at 13:00; Stop 09/03/16 at 08:58; Status DC Pantoprazole Sodium (Protonix) 40 mg DAILY PO Last administered on 09/03/16 10 :06; Start 09/02/16 at 09:00; Stop 10/02/16 at 08:59 Polyethylene Glycol (Miralax) 1 pkt DAILY PRN PO CONSTIPATION; Start 09/02/16 at 13:00; Stop 10/02/16 at 12:59 Senna (Senokot) 1 tab QHS PO ; Start 09/02/16 at 21:00; Stop 10/02/16 at 20:59 Sodium Chloride ([place] Nasal [place]) 2 spray Q2HP PRN NA NASAL DRYNESS; Start at 12:00; Stop 10/03/16 at 11:59 ANGY CA MD Sep 03, 2016 12:29 ANGY CA MD Sep 03, 2016 12:29
[2016-09-03 14:27] VITALS: BP 98/51
[2016-09-03] MEDS ORDERED: WARFARIN SOD 3 MG TAB PO ONE (17:00)
[2016-09-03 20:00] VITALS: BP 110/59
[2016-09-03] MEDS: SENNA 8.6 MG TAB (SENOKOT) PO SCH (21:00)
[2016-09-04] MEDS: ACETAMINOPHEN TAB 650MG DOSE (2X325MG) PO PRN ×3 (03:14→20:47)
[2016-09-04 06:00] VITALS: BP 115/55
[2016-09-04 07:12] LABS: INR 1.47
[2016-09-04] MEDS: PANTOPRAZOLE 40MG TAB (PROTONIX) PO SCH (08:01)
[2016-09-04] MEDS: LACTOBACILLUS ACIDOPHILUS CAP (BACID) PO SCH ×2 (08:01→18:01)
[2016-09-04] MEDS: DOCUSATE SODIUM 100 MG CAP PO SCH (09:00)
--- NOTE | 2016-09-04 11:26 | IPNPDOC ---
Stand Grinder Progress Note PROGRESS NOTE DATE OF ADMISSION: 09/02/2016 DATE OF SERVICE: 09/04/2016 IDENTIFICATION STATEMENT: Patient is an 86-year-old woman status post right total hip arthroplasty admitted for copper incidents of integrated inpatient rehabilitation. PAST MEDICAL HISTORY: Diverticulosis with 2 bouts of diverticulitis in the last 4 years Osteoporosis Osteoarthritis Panic attacks Colonic Polyps PAST SURGICAL HISTORY: Total hysterectomy (still has bilateral ovaries) Appendectomy ALLERGIES: Prochlorperazine MEDICATIONS: Coumadin dose daily Acetaminophen 650 mg by mouth every 4 hours when necessary Percocet 1 tabs by mouth every 4 hours when necessary NS nasal spray q2h prn Colace 100mg po bid prn SUBJECTIVE: Patient complaints of loose stools, last one sometime during evening. No abdominal pain. No other complaints. Pain adequately controlled. Denies any CP, SOB, N/V, dysuria VITAL SIGNS: Temperature 97.4F, pulse of 79, respiratory rate of 18, blood pressure 115/55, 97% saturation on room air. PHYSICAL EXAMINATION: GENERAL: Well nourished, well developed, sitting up in bed, no acute distress. HEENT: Normocephalic, atraumatic. PERRL, EOMI CARDIOVASCULAR: S1, S2, regular rate. No significant LL edema b/l, no calf tenderness b/l LUNGS: Clear to auscultation bilaterally no wheezing, rhonchi or rales ABDOMEN: Soft, nontender, nondistended. Normoactive bowel sounds throughout. MUSCULOSKELETAL: MMT: 5/5 strength bilateral upper limbs in all major muscle groups. 5/5 strength left lower limb in all major muscle groups. 3-/5 right hip flexors, 5/5 right knee extension, 5/5 right knee flexion, dorsiflexion and plantar flexion. NEUROLOGICAL: Alert and oriented x 3. Answers all questions appropriately able to follow commands without difficulty. SKIN: Right lateral hip and thigh surgical incision covered with OptiFoam (not removed) LABORATORY DATA: 09/03/2016: reviewed, see below MRSA screen 09/03/16 pending FUNCTIONAL STATUS: Premorbid: Independent with ADLs and ambulation. Drove regularly. On Admission: Min assist for ambulation 40 feet with rolling walker ASSESSMENT AND PLAN: 1. 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 2. DVT prophylaxis: Coumadin to be dose daily by RAIZA Mays of the orthopedic service. Continue SCD and HIRAM garcia. 3. Constipation: Resolved, now with loose stools. Changed Colace prn and d/cd other bowel meds. Oral hydration. 4. Anemia, acute blood loss: Hgb ~stable. Monitor periodically. 5. Urinary frequency: Afebrile without leukocytosis. W/u if situation changes. 6. Hypotension: Improved BP. Encourage oral hydration. Minimize opioid medication. 7. Pain: Adequately controlled. Continue current regimen, APAP, Percocet prn and intermittent ice. 8. Malnutrition: Prealbumin low. Continue Ensure supplements. / Vital Signs Vital Sign - Last 24 Hours 09/03/16 09/03/16 09/04/16 14:27 20:00 06:00 Temp 98.5 98.3 97.4 Pulse 80 82 79 Resp 18 18 18 B/P 98/51 110/59 115/55 Pulse Ox 99 98 97 O2 Delivery Room Air Room Air Laboratory Data Labs 24H Laboratory Tests 2 09/04/16 06:21: Prothromb Time International Ratio 1.47, Prothrombin Time 17.9H Microbiology Microbiology 09/03/16 MRSA Screen, Received Pending Allergies Allergies: Coded Allergies: Prochlorperazine (Verified Allergy, Severe, tongue swells, 08/19/16) Current Medications Current Medications Current Medications Acetaminophen (Tylenol Tab) 650 mg Q4HP PRN PO MILD PAIN (PS 1-5) Last administered on 09/04/16 08:01; Start 09/02/16 at 13:00; Stop 10/02/16 at 12:59 Docusate Sodium (Colace) 100 mg BID PO ; Start 09/02/16 at 21:00; Stop 09/04/16 at 11:16; Status DC Docusate Sodium (Colace) 100 mg BIDP PRN PO CONSTIPATION; Start 09/05/16 at 09: 00; Stop 10/05/16 at 08:59 Lactobacillus Acidophilus (Bacid) 1 ea BIDWM PO Last administered on 09/04/16 08:01; Start 09/02/16 at 18:00; Stop 10/02/16 at 17:59 Magnesium Hydroxide (Milk Of Magnesia) 30 ml DAILYPRN PRN PO CONSTIPATION; Start 09/02/16 at 13:00; Stop 09/04/16 at 11:15; Status DC Miscellaneous (Unresolved Clarification Entry) SEE LABEL COMMENTS UNRESOLVED XX ; Start 09/02/16 at 00:01; Stop 09/02/16 at 13:08; Status DC Oxycodone/ Acetaminophen (Percocet 5mg/ 325mg Tablet) 1 tab Q4HP PRN PO MODERATE/SEVERE PAIN (PS 6-10) Last administered on 09/03/16 02:33; Start 09/02 at 13:00; Stop 09/09/16 at 12:59 Oxycodone/ Acetaminophen (Percocet 5mg/ 325mg Tablet) 2 tab Q4HP PRN PO SEVERE PAIN (PS 8-10); Start 09/02/16 at 13:00; Stop 09/03/16 at 08:58; Status DC Pantoprazole Sodium (Protonix) 40 mg DAILY PO Last administered on 09/04/16 08 :01; Start 09/02/16 at 09:00; Stop 10/02/16 at 08:59 Polyethylene Glycol (Miralax) 1 pkt DAILY PRN PO CONSTIPATION; Start 09/02/16 at 13:00; Stop 09/04/16 at 11:15; Status DC Senna (Senokot) 1 tab QHS PO ; Start 09/02/16 at 21:00; Stop 09/04/16 at 11:15; Status DC Sodium Chloride ([place] Nasal [place]) 2 spray Q2HP PRN NA NASAL DRYNESS Last administered on 09/03/16 15:23; Start 09/03/16 at 12:00; Stop 10/03/16 at 11:59 ANGY CA MD Sep 04, 2016 11:26 ANGY CA MD Sep 04, 2016 11:26
[2016-09-04 14:00] VITALS: BP 106/52
[2016-09-04] MEDS ORDERED: WARFARIN SOD 5 MG TAB PO ONE (17:00)
[2016-09-04 20:00] VITALS: BP 110/62
[2016-09-05 06:00] VITALS: BP 122/57
[2016-09-05 06:58] LABS: MEAN CORPUSCULAR HEMOGLOBIN 31.1 pg (27.0-33.0); MEAN CORPUSCULAR HGB CONC 32.5 g/dl (32.0-36.5); MEAN CORPUSCULAR VOLUME 95.6 fl (80.0-96.0); RED CELL DISTRIBUTION WIDTH 11.9 % (11.5-14.5); WHITE BLOOD COUNT 6.8 K/mm3 (4.0-10.0)
[2016-09-05 07:05] LABS: ANION GAP 8 MEQ/L (8-16); BLOOD UREA NITROGEN 12 MG/DL (7-18); CALCIUM LEVEL 8.9 MG/DL (8.8-10.2); CARBON DIOXIDE LEVEL 31 MEQ/L (21-32); CHLORIDE LEVEL 103 MEQ/L (98-107); CREATININE FOR GFR 0.61 MG/DL (0.55-1.02); GLOMERULAR FILTRATION RATE > 60.0 (>32); GLUCOSE, FASTING 113 MG/DL (83-110); SODIUM LEVEL 142 MEQ/L (136-145)
[2016-09-05 07:10] LABS: INR 1.35
[2016-09-05] MEDS: LACTOBACILLUS ACIDOPHILUS CAP (BACID) PO SCH ×2 (08:30→17:39)
[2016-09-05] MEDS: PANTOPRAZOLE 40MG TAB (PROTONIX) PO SCH (08:30)
[2016-09-05] MEDS ORDERED: DOCUSATE SODIUM 100 MG CAP PO PRN (09:00)
[2016-09-05] MEDS: ACETAMINOPHEN TAB 650MG DOSE (2X325MG) PO PRN (13:08)
[2016-09-05 14:00] VITALS: BP 100/55
[2016-09-05] MEDS ORDERED: WARFARIN SOD 3 MG TAB PO ONE (17:00)
[2016-09-05 20:00] VITALS: BP 120/56
[2016-09-06] MEDS: ACETAMINOPHEN TAB 650MG DOSE (2X325MG) PO PRN ×2 (02:02→21:25)
[2016-09-06 06:00] VITALS: BP 124/58
[2016-09-06 06:48] LABS: INR 1.69
[2016-09-06] MEDS: PANTOPRAZOLE 40MG TAB (PROTONIX) PO SCH (08:34)
[2016-09-06] MEDS: LACTOBACILLUS ACIDOPHILUS CAP (BACID) PO SCH ×2 (08:34→17:48)
[2016-09-06 14:00] VITALS: BP 110/53
[2016-09-06] MEDS ORDERED: WARFARIN SOD 7.5 MG TAB PO ONE (17:00)
[2016-09-06 20:00] VITALS: BP 114/54
[2016-09-07 06:00] VITALS: BP 111/55
[2016-09-07 07:25] LABS: MEAN CORPUSCULAR HEMOGLOBIN 31.1 pg (27.0-33.0); MEAN CORPUSCULAR HGB CONC 32.6 g/dl (32.0-36.5); MEAN CORPUSCULAR VOLUME 95.5 fl (80.0-96.0); WHITE BLOOD COUNT 6.2 K/mm3 (4.0-10.0)
[2016-09-07 07:34] LABS: INR 2.45
[2016-09-07 07:48] LABS: ANION GAP 7 MEQ/L (8-16); BLOOD UREA NITROGEN 11 MG/DL (7-18); CALCIUM LEVEL 9.5 MG/DL (8.8-10.2); CARBON DIOXIDE LEVEL 31 MEQ/L (21-32); CHLORIDE LEVEL 102 MEQ/L (98-107); CREATININE FOR GFR 0.61 MG/DL (0.55-1.02); GLOMERULAR FILTRATION RATE > 60.0 (>32); GLUCOSE, FASTING 94 MG/DL (83-110); POTASSIUM SERUM 3.9 MEQ/L (3.5-5.1); SODIUM LEVEL 140 MEQ/L (136-145)
[2016-09-07] MEDS: LACTOBACILLUS ACIDOPHILUS CAP (BACID) PO SCH ×2 (08:34→17:36)
[2016-09-07] MEDS: PANTOPRAZOLE 40MG TAB (PROTONIX) PO SCH (08:35)
[2016-09-07] MEDS: ACETAMINOPHEN TAB 650MG DOSE (2X325MG) PO PRN (08:37)
--- NOTE | 2016-09-07 11:03 | IPNPDOC ---
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 PAST MEDICAL HISTORY: Diverticulosis with 2 bouts of diverticulitis in the last 4 years Osteoporosis Osteoarthritis Panic attacks Colonic Polyps PAST SURGICAL HISTORY: Total hysterectomy (still has bilateral ovaries) Appendectomy ALLERGIES: Prochlorperazine MEDICATIONS: Coumadin dose daily Acetaminophen 650 mg by mouth every 4 hours when necessary Percocet 1 tabs by mouth every 4 hours when necessary NS nasal spray q2h prn Colace 100mg po bid prn SUBJECTIVE: Patient w/o complaints. No significant pain, just hip achiness. Denies any CP, SOB, N/V, dysuria, C/D. VITAL SIGNS: Temperature 96.7F, pulse of 84, respiratory rate of 18, blood pressure 111/55, 99% saturation on room air. PHYSICAL EXAMINATION: GENERAL: Well nourished, well developed, sitting up in chair, no acute distress. HEENT: Normocephalic, atraumatic. PERRL, EOMI CARDIOVASCULAR: S1, S2, regular rate. No significant left LL edema calf tenderness. Mild swelling right LL, no right LL tenderness. LUNGS: Clear to auscultation bilaterally no wheezing, rhonchi or rales ABDOMEN: Soft, nontender, nondistended. Normoactive bowel sounds throughout. MUSCULOSKELETAL: MMT: 5/5 strength bilateral upper limbs in all major muscle groups. 5/5 strength left lower limb in all major muscle groups. 4/5 right hip flexors, 5/5 right knee extension, 5/5 right knee flexion, dorsiflexion and plantar flexion. NEUROLOGICAL: Alert and oriented x 3. Answers all questions appropriately able to follow commands without difficulty. SKIN: Right lateral hip and thigh surgical incision covered with OptiFoam (not removed) LABORATORY DATA: 09/07/2016: reviewed, see below MRSA screen 09/03/16 pending FUNCTIONAL STATUS: Premorbid: Independent with ADLs and ambulation. Drove regularly. On Admission: Min assist for ambulation 40 feet with rolling walker ASSESSMENT AND PLAN: 1. 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 Continue daily physical and occupational therapy. Rehabilitation nursing for bladder, bowel and medication management. 2. DVT prophylaxis: Coumadin to be dose daily by RAIZA Mays of the orthopedic service. Continue SCD and HIRAM garcia. 3. Bowel: Constipation: Resolved. Loose stools resolved. Colace prn. 4. Anemia, acute blood loss: Hgb ~stable. Monitor periodically. 5. Urinary frequency: Afebrile without leukocytosis. 6. Hypotension: Resolved. 7. Pain: Adequately controlled. Continue current regimen. Hasnt required Percocet.. 8. Malnutrition: Prealbumin low. Continue Ensure supplements. / Vital Signs Vital Sign - Last 24 Hours 09/06/16 09/06/16 09/07/16 14:00 20:00 06:00 Temp 98.7 98.2 96.7 Pulse 91 85 84 Resp 20 18 B/P 110/53 114/54 111/55 Pulse Ox 100 98 99 O2 Delivery Room Air Room Air Room Air Laboratory Data CBC/BMP Laboratory Tests 09/07/16 07:14 Calcium Level 9.5, Red Blood Count 3.60 L, Mean Corpuscular Volume 95.5, Mean Corpuscular Hemoglobin 31.1, Mean Corpuscular Hemoglobin Concent 32.6, Red Cell Distribution Width 12.0 Labs 24H Laboratory Tests 2 09/07/16 07:14: Anion Gap 7L, Blood Urea Nitrogen 11, Creatinine 0.61, Sodium Level 140, Potassium Level 3.9, Chloride Level 102, Carbon Dioxide Level 31, Calcium Level 9.5, Glomerular Filtration Rate > 60.0, Prothromb Time International Ratio 2.45 , Prothrombin Time 26.6H Microbiology Microbiology 09/03/16 MRSA Screen - Final, Complete Allergies Allergies: Coded Allergies: Prochlorperazine (Verified Allergy, Severe, tongue swells, 08/19/16) Current Medications Current Medications Current Medications Acetaminophen (Tylenol Tab) 650 mg Q4HP PRN PO MILD PAIN (PS 1-5) Last administered on 09/07/16t 08:37; Start 09/02/16 at 13:00; Stop 10/02/16 at 12:59 Docusate Sodium (Colace) 100 mg BID PO ; Start 09/02/16 at 21:00; Stop 09/04/16 at 11:16; Status DC Docusate Sodium (Colace) 100 mg BIDP PRN PO CONSTIPATION; Start 09/05/16 at 09: 00; Stop 10/05/16 at 08:59 Lactobacillus Acidophilus (Bacid) 1 ea BIDWM PO Last administered on 09/07/16 08:34; Start 09/02/16 at 18:00; Stop 10/02/16 at 17:59 Magnesium Hydroxide (Milk Of Magnesia) 30 ml DAILYPRN PRN PO CONSTIPATION; Start 09/02/16 at 13:00; Stop 09/04/16 at 11:15; Status DC Miscellaneous (Unresolved Clarification Entry) SEE LABEL COMMENTS UNRESOLVED XX ; Start 09/02/16 at 00:01; Stop 09/02/16 at 13:08; Status DC Oxycodone/ Acetaminophen (Percocet 5mg/ 325mg Tablet) 1 tab Q4HP PRN PO MODERATE/SEVERE PAIN (PS 6-10) Last administered on 09/03/16 02:33; Start 09/02 at 13:00; Stop 09/09/16 at 12:59 Oxycodone/ Acetaminophen (Percocet 5mg/ 325mg Tablet) 2 tab Q4HP PRN PO SEVERE PAIN (PS 8-10); Start 09/02/16 at 13:00; Stop 09/03/16 at 08:58; Status DC Pantoprazole Sodium (Protonix) 40 mg DAILY PO Last administered on 09/07/16 08 :35; Start 09/02/16 at 09:00; Stop 10/02/16 at 08:59 Polyethylene Glycol (Miralax) 1 pkt DAILY PRN PO CONSTIPATION; Start 09/02/16 at 13:00; Stop 09/04/16 at 11:15; Status DC Senna (Senokot) 1 tab QHS PO ; Start 09/02/16 at 21:00; Stop 09/04/16 at 11:15; Status DC Sodium Chloride ([place] Nasal [place]) 2 spray Q2HP PRN NA NASAL DRYNESS Last administered on 09/03/16 15:23; Start 09/03/16 at 12:00; Stop 10/03/16 at 11:59 ANGY CA MD Sep 07, 2016 11:03
[2016-09-07 14:00] VITALS: BP 117/57
[2016-09-07 19:32] VITALS: BP 101/51
[2016-09-08 06:16] VITALS: BP 120/59
[2016-09-08 06:50] LABS: INR 2.03
[2016-09-08] MEDS: LACTOBACILLUS ACIDOPHILUS CAP (BACID) PO SCH ×2 (08:28→16:58)
[2016-09-08] MEDS: PANTOPRAZOLE 40MG TAB (PROTONIX) PO SCH (08:29)
--- NOTE | 2016-09-08 11:10 | IPNPDOC ---
[employer] Analysis Technician Progress Note PROGRESS NOTE DATE OF ADMISSION: 09/02/2016 DATE OF SERVICE: 09/08/2016 IDENTIFICATION STATEMENT: Patient is an 86-year-old woman status post right total hip arthroplasty admitted for copper incidents of integrated inpatient rehabilitation. Thereve been no significant changes in the patients condition since the preadmission screening. PAST MEDICAL HISTORY: Diverticulosis with 2 bouts of diverticulitis in the last 4 years Osteoporosis Osteoarthritis Panic attacks Colonic Polyps PAST SURGICAL HISTORY: Total hysterectomy (still has bilateral ovaries) Appendectomy ALLERGIES: Prochlorperazine MEDICATIONS: Coumadin dose daily Acetaminophen 650 mg by mouth every 4 hours when necessary Percocet 1 tabs by mouth every 4 hours when necessary NS nasal spray q2h prn Colace 100mg po bid prn SUBJECTIVE: Patient w/o complaints. No pain, just hip achiness. Denies any CP, SOB, N/V, dysuria, C/D. Slept weel. VITAL SIGNS: Temperature 98.3F, pulse of 84, respiratory rate of 18, blood pressure 120/59, 100% saturation on room air. PHYSICAL EXAMINATION: GENERAL: Well nourished, well developed, sitting up in chair, no acute distress. HEENT: Normocephalic, atraumatic. PERRL, EOMI CARDIOVASCULAR: S1, S2, regular rate. No significant left LL edema calf tenderness. Mild swelling right LL, no right LL tenderness. LUNGS: Clear to auscultation bilaterally no wheezing, rhonchi or rales ABDOMEN: Soft, nontender, nondistended. Normoactive bowel sounds throughout. MUSCULOSKELETAL: MMT: 5/5 strength bilateral upper limbs in all major muscle groups. 5/5 strength left lower limb in all major muscle groups. 4/5 right hip flexors, 5/5 right knee extension, 5/5 right knee flexion, dorsiflexion and plantar flexion. NEUROLOGICAL: Alert and oriented x 3. Answers all questions appropriately able to follow commands without difficulty. SKIN: Right lateral hip and thigh surgical incision covered with OptiFoam (not removed) LABORATORY DATA: 09/08/2016: reviewed, see below MRSA screen 09/03/16 negative FUNCTIONAL STATUS: Premorbid: Independent with ADLs and ambulation. Drove regularly. On Admission: Min assist for ambulation 40 feet with rolling walker ASSESSMENT AND PLAN: 1. 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 Moved to apartment simulator yesterday. Scheduled for discharge tomorrow. Continue daily physical and occupational therapy. Rehabilitation nursing for bladder, bowel and medication management. 2. DVT prophylaxis: Coumadin to be dose daily by RAIZA Mays of the orthopedic service. Continue SCD and HIRAM hose. 3. Bowel: Constipation: Resolved. Loose stools resolved. Colace prn. 4. Anemia, acute blood loss: Hgb ~stable. Monitor periodically. 5. Urinary frequency: Resolved. 6. Hypotension: Resolved. 7. Pain: Adequately controlled. Continue current regimen. Has not required Percocet. 8. Malnutrition: Prealbumin low. Continue Ensure supplements. / Vital Signs Vital Sign - Last 24 Hours 09/07/16 09/07/16 09/08/16 14:00 19:32 06:16 Temp 96.7 98.4 98.3 Pulse 82 90 84 Resp 18 16 18 B/P 117/57 101/51 120/59 Pulse Ox 99 98 100 O2 Delivery Room Air Room Air Room Air Laboratory Data Labs 24H Laboratory Tests 2 09/08/16 06:18: Prothromb Time International Ratio 2.03, Prothrombin Time 23.0H Microbiology Microbiology 09/03/16 MRSA Screen - Final, Complete Allergies Allergies: Coded Allergies: Prochlorperazine (Verified Allergy, Severe, tongue swells, 08/19/16) Current Medications Current Medications Current Medications Acetaminophen (Tylenol Tab) 650 mg Q4HP PRN PO MILD PAIN (PS 1-5) Last administered on 09/07/16 08:37; Start 09/02/16 at 13:00; Stop 10/02/16 at 12:59 Docusate Sodium (Colace) 100 mg BID PO ; Start 09/02/16 at 21:00; Stop 09/04/16 at 11:16; Status DC Docusate Sodium (Colace) 100 mg BIDP PRN PO CONSTIPATION; Start 09/05/16 at 09: 00; Stop 10/05/16 at 08:59 Lactobacillus Acidophilus (Bacid) 1 ea BIDWM PO Last administered on 09/08/16 08:28; Start 09/02/16 at 18:00; Stop 10/02/16 at 17:59 Magnesium Hydroxide (Milk Of Magnesia) 30 ml DAILYPRN PRN PO CONSTIPATION; Start 09/02/16 at 13:00; Stop 09/04/16 at 11:15; Status DC Miscellaneous (Unresolved Clarification Entry) SEE LABEL COMMENTS UNRESOLVED XX ; Start 09/02/16 at 00:01; Stop 09/02/16 at 13:08; Status DC Oxycodone/ Acetaminophen (Percocet 5mg/ 325mg Tablet) 1 tab Q4HP PRN PO MODERATE/SEVERE PAIN (PS 6-10) Last administered on 09/03/16 02:33; Start 09/02 at 13:00; Stop 09/09/16 at 12:59 Oxycodone/ Acetaminophen (Percocet 5mg/ 325mg Tablet) 2 tab Q4HP PRN PO SEVERE PAIN (PS 8-10); Start 09/02/16 at 13:00; Stop 09/03/16 at 08:58; Status DC Pantoprazole Sodium (Protonix) 40 mg DAILY PO Last administered on 09/08/16 08 :29; Start 09/02/16 at 09:00; Stop 10/02/16 at 08:59 Polyethylene Glycol (Miralax) 1 pkt DAILY PRN PO CONSTIPATION; Start 09/02/16 at 13:00; Stop 09/04/16 at 11:15; Status DC Senna (Senokot) 1 tab QHS PO ; Start 09/02/16 at 21:00; Stop 09/04/16 at 11:15; Status DC Sodium Chloride ([place] Nasal [place]) 2 spray Q2HP PRN NA NASAL DRYNESS Last administered on 09/03/16 15:23; Start 09/03/16 at 12:00; Stop 10/03/16 at 11:59 ANGY CA MD Sep 08, 2016 11:10
[2016-09-08 14:00] VITALS: BP 118/56
[2016-09-08] MEDS ORDERED: WARFARIN SOD 3 MG TAB PO ONE (17:00)
[2016-09-08 20:00] VITALS: BP 107/51
[2016-09-09 06:00] VITALS: BP 103/54
[2016-09-09 06:51] LABS: MEAN CORPUSCULAR HEMOGLOBIN 31.8 pg (27.0-33.0); MEAN CORPUSCULAR HGB CONC 33.3 g/dl (32.0-36.5); MEAN CORPUSCULAR VOLUME 95.5 fl (80.0-96.0); RED CELL DISTRIBUTION WIDTH 12.1 % (11.5-14.5); WHITE BLOOD COUNT 7.7 K/mm3 (4.0-10.0)
[2016-09-09 07:10] LABS: ANION GAP 8 MEQ/L (8-16); BLOOD UREA NITROGEN 12 MG/DL (7-18); CALCIUM LEVEL 9.1 MG/DL (8.8-10.2); CARBON DIOXIDE LEVEL 31 MEQ/L (21-32); CHLORIDE LEVEL 103 MEQ/L (98-107); CREATININE FOR GFR 0.68 MG/DL (0.55-1.02); GLOMERULAR FILTRATION RATE > 60.0 (>32); GLUCOSE, FASTING 100 MG/DL (83-110); MAGNESIUM LEVEL 2.1 MG/DL (1.8-2.4); POTASSIUM SERUM 3.7 MEQ/L (3.5-5.1); SODIUM LEVEL 142 MEQ/L (136-145)
[2016-09-09 07:14] LABS: INR 2.13
[2016-09-09] MEDS ORDERED: COUM2.5T11 PO (07:27)
[2016-09-09] MEDS: LACTOBACILLUS ACIDOPHILUS CAP (BACID) PO SCH (08:17)
[2016-09-09] MEDS: PANTOPRAZOLE 40MG TAB (PROTONIX) PO SCH (08:17)
--- NOTE | 2016-09-09 09:43 | DS.PDOC ---
Cost Analyst Discharge Note DISCHARGE SUMMARY DATE OF ADMISSION: 09/02/2016 DATE OF SERVICE: 09/09/2016 DISCHARGE DIAGNOSES 1. 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 Anemia, acute blood loss 3. Hypotension 4. Malnutrition IDENTIFICATION STATEMENT: Patient is an 86-year-old woman status post right total hip arthroplasty admitted for copper incidents of integrated inpatient rehabilitation. Thereve been no significant changes in the patients condition since the preadmission screening. PAST MEDICAL HISTORY: Diverticulosis with 2 bouts of diverticulitis in the last 4 years Osteoporosis Osteoarthritis Panic attacks Colonic Polyps PAST SURGICAL HISTORY: Total hysterectomy (still has bilateral ovaries) Appendectomy HOSPITAL COURSE The patient underwent daily physical and occupational therapy. She was maintained on WBAT right LL. She tolerated her therapy sessions well and made progressive gains. Surgical site was monitored periodically and noted to be healing well. Arrangements were made for removal of staple post-discharge. She met her functional goals and on 09/09/16 she was deemed stable discharge home with [facility]. Other issues addressed while on the rehabilitation unit are outlined as follows: 1. DVT prophylaxis: Coumadin dose daily by RAIZA Mays of the orthopedic service. Maintained SCD and HIRAM hose. 2. Bowel: Constipation resolved s/p bowel regimen. Maintained on Colace prn. 3. Anemia, acute blood loss: Hgb ~stable. 4. Hypotension: Resolved with oral hydration 5. Pain: Adequately controlled with Tylenol. Never required any Percocet. 6. Malnutrition: Provided with Ensure supplements and prealbumin trending up by time of discharge. FUNCTIONAL STATUS on discharge: Modified independent with ADLs and ambulation VITAL SIGNS: Temperature 97.9F, pulse of 86, respiratory rate of 18, blood pressure 103/54, 98% saturation on room air. PHYSICAL EXAMINATION: GENERAL: Well nourished, well developed, sitting up in chair, no acute distress. HEENT: Normocephalic, atraumatic. PERRL, EOMI CARDIOVASCULAR: S1, S2, regular rate. No significant left LL edema calf tenderness. Scant swelling right LL (decreased), no right LL calf tenderness. LUNGS: Clear to auscultation bilaterally no wheezing, rhonchi or rales ABDOMEN: Soft, nontender, nondistended. Normoactive bowel sounds throughout. MUSCULOSKELETAL: MMT: 5/5 strength bilateral upper limbs in all major muscle groups. 5/5 strength left lower limb in all major muscle groups. 4+/5 right hip flexors, 5/5 right knee extension, 5/5 right knee flexion, dorsiflexion and plantar flexion. NEUROLOGICAL: Alert and oriented x 3. Answers all questions appropriately able to follow commands without difficulty. SKIN: Right lateral hip and thigh surgical incision with staple C/D/I, healing well. LABORATORY DATA: 09/09/2016: reviewed, see below MRSA screen 09/03/16 negative ALLERGIES: Prochlorperazine MEDICATIONS: Coumadin dose per [facility] Acetaminophen 650 mg by mouth every 4 hours when necessary Calcium/Vit D 1 tab daily Probiotic 1 cap daily MVI 1 tab daily Vit D 2000 daily [place]-S 1 bid prn DISCHARGE DISPOSITION: 1. The patient discharge home with [facility] 2. The patient discharged in stable condition 3. Discharged with [facility] to include RN, PT, OT and bath aide. Lab draw qMon & Thur for PT/INR 4. Equipment: had all needed equiptment 5. Post discharge follow-up medical appointments: PCP, Ortho. / Vital Signs/I&O Vital Sign - Last 24 Hours 09/08/16 09/08/16 09/09/16 14:00 20:00 06:00 Temp 96.8 98.0 97.9 Pulse 90 91 86 Resp 18 20 18 B/P 118/56 107/51 103/54 Pulse Ox 99 99 98 O2 Delivery Room Air Room Air Room Air I&O- Last 24 Hours up to 6 AM 09/09/16 06:00 Intake Total 1620 ml Balance 1620 ml Laboratory Data CBC/BMP Laboratory Tests 09/09/16 06:38 Calcium Level 9.1, Red Blood Count 3.49 L, Mean Corpuscular Volume 95.5, Mean Corpuscular Hemoglobin 31.8, Mean Corpuscular Hemoglobin Concent 33.3, Red Cell Distribution Width 12.1 Labs 48H Laboratory Tests 09/08/16 06:18: Prothromb Time International Ratio 2.03, Prothrombin Time 23.0H 09/09/16 06:38: Prothromb Time International Ratio 2.13, Prothrombin Time 23.9H, Anion Gap 8, Blood Urea Nitrogen 12, Creatinine 0.68, Sodium Level 142, Potassium Level 3.7, Chloride Level 103, Carbon Dioxide Level 31, Calcium Level 9.1, Fasting Glucose 100, Glomerular Filtration Rate > 60.0, White Blood Count 7.7, Red Blood Count 3.49L, Hemoglobin 11.1L, Hematocrit 33.3L, Mean Corpuscular Volume 95.5, Mean Corpuscular Hemoglobin 31.8, Mean Corpuscular Hemoglobin Concent 33.3, Red Cell Distribution Width 12.1, Platelet Count 428, Magnesium Level 2.1, Prealbumin 21.5 Microbiology Microbiology 09/03/16 MRSA Screen - Final, Complete Medications Medications Current Medications Acetaminophen (Tylenol Tab) 650 mg Q4HP PRN PO MILD PAIN (PS 1-5) Last administered on 09/07/16 08:37; Start 09/02/16 at 13:00; Stop 10/02/16 at 12:59 Docusate Sodium (Colace) 100 mg BID PO ; Start 09/02/16 at 21:00; Stop 09/04/16 at 11:16; Status DC Docusate Sodium (Colace) 100 mg BIDP PRN PO CONSTIPATION; Start 09/05/16 at 09: 00; Stop 10/05/16 at 08:59 Lactobacillus Acidophilus (Bacid) 1 ea BIDWM PO Last administered on 09/09/16 08:17; Start 09/02/16 at 18:00; Stop 10/02/16 at 17:59 Magnesium Hydroxide (Milk Of Magnesia) 30 ml DAILYPRN PRN PO CONSTIPATION; Start 09/02/16 at 13:00; Stop 09/04/16 at 11:15; Status DC Miscellaneous (Unresolved Clarification Entry) SEE LABEL COMMENTS UNRESOLVED XX ; Start 09/02/16 at 00:01; Stop 09/02/16 at 13:08; Status DC Oxycodone/ Acetaminophen (Percocet 5mg/ 325mg Tablet) 1 tab Q4HP PRN PO MODERATE/SEVERE PAIN (PS 6-10) Last administered on 09/03/16 02:33; Start 09/02 at 13:00; Stop 09/15/16 at 12:59 Oxycodone/ Acetaminophen (Percocet 5mg/ 325mg Tablet) 2 tab Q4HP PRN PO SEVERE PAIN (PS 8-10); Start 09/02/16 at 13:00; Stop 09/03/16 at 08:58; Status DC Pantoprazole Sodium (Protonix) 40 mg DAILY PO Last administered on 09/09/16t 08 :17; Start 09/02/16 at 09:00; Stop 10/02/16 at 08:59 Polyethylene Glycol (Miralax) 1 pkt DAILY PRN PO CONSTIPATION; Start 09/02/16 at 13:00; Stop 09/04/16 at 11:15; Status DC Senna (Senokot) 1 tab QHS PO ; Start 09/02/16 at 21:00; Stop 09/04/16 at 11:15; Status DC Sodium Chloride ([place] Nasal [place]) 2 spray Q2HP PRN NA NASAL DRYNESS Last administered on 09/03/16t 15:23; Start 09/03/16 at 12:00; Stop 10/03/16 at 11:59 Scheduled (Senna Plus 8.6-50 mg) 1 Tab Tab 1 TAB PO BID Calcium/Vitamin D (Calcium 500/Vitamin D 500-125 mg-Unit) 1 Tab Tab 500 MG PO DAILY (Reported) Fish Oil (Fish Oil) 1,000 Mg Cap 1,000 MG PO DAILY (Reported) Lactobacillus Acidophilus (Probiotic) 1 Cap Cap 1 CAP PO DAILY (Reported) Multivitamins (Multivitamin Adults) 1 Tab Tab 1 TAB PO DAILY (Reported) Vitamin D (Vitamin D) 1,000 Unit Cap 2,000 UNIT PO DAILY (Reported) Warfarin Sod (Coumadin) 2.5 Mg Tab 1 TAB PO ASDIRECTED MDD = 6 tabs Scheduled PRN Acetaminophen (Tylenol Extra Strength) 500 Mg Tab 500 MG PO PRN PRN PRN PAIN ( Reported) Allergies Coded Allergies: Prochlorperazine (Verified Allergy, Severe, tongue swells, 08/19/16) ANGY CA MD Sep 09, 2016 09:43
[2016-09-09] MEDS: ACETAMINOPHEN TAB 650MG DOSE (2X325MG) PO PRN (10:48)
== END 2016-09-09 11:35 | disposition home health service (06) | DRG 560 ==
LOC: M PM&R 11:50
PROVIDERS: ADMIT Physical Medicine & Rehabilitation; ATTEND Physical Medicine & Rehabilitation
DX: Z47.1 Aftercare following joint replacement surgery (principal); D62 Acute posthemorrhagic anemia; E46 Unspecified protein-calorie malnutrition; M81.0 Age-related osteoporosis without current pathological fracture; F41.0 Panic disorder [episodic paroxysmal anxiety]; R26.9 Unspecified abnormalities of gait and mobility; R35.0 Frequency of micturition; K57.90 Diverticulosis of intestine, part unspecified, without perforation or abscess without bleeding; K63.5 Polyp of colon; K59.00 Constipation, unspecified; I95.9 Hypotension, unspecified; Z90.710 Acquired absence of both cervix and uterus; Z79.01 Long term (current) use of anticoagulants; Z79.899 Other long term (current) drug therapy; Z96.641 Presence of right artificial hip joint; Z88.8 Allergy status to other drugs, medicaments and biological substances

== ENCOUNTER → 2016-09-10 | Outpatient (REF) | payer MEDICARE, OTHER ==
[~2016-09-10] MED LIST changes: +COUM2.5T11 PO
[2016-09-10 15:51] LABS: INR 1.79
== END ==
LOC: M SHH 15:28
PROVIDERS: ATTEND Nurse Practitioner Family
DX: Z51.81 Encounter for therapeutic drug level monitoring (principal); Z79.01 Long term (current) use of anticoagulants

== ENCOUNTER → 2017-03-01 | Outpatient (CLI) | payer MEDICARE, OTHER ==
[~2017-03-01] MED LIST changes: -COUM2.5T11 PO; +COUM2.5T17 PO; -MAGN250T5 PO; +MAGN250T6 PO; -ONDA1TAB15 PO; +ONDA4TAB5 PO; -VITA100037 PO; +VITA100067 PO
[2017-03-03 00:06] LABS: Lyme Disease IgG/IgM Antibodie <0.91 ISR (0.00-0.90); Lyme Disease IgM Ab Quantitati <0.80 index (0.00-0.79)
== END ==
LOC: M WUC 10:29
PROVIDERS: ATTEND Physician Assistant
DX: S80.261D Insect bite (nonvenomous), right knee, subsequent encounter (principal); X58.XXXD Exposure to other specified factors, subsequent encounter; Y99.9 Unspecified external cause status

== ENCOUNTER → 2018-02-10 | Outpatient (CLI) | payer MEDICARE, OTHER | LOC: M WUC 14:13 | DX: M51.36 Other intervertebral disc degeneration, lumbar region (principal) | CPT/HCPCS: 72100 ==

== ENCOUNTER → 2018-12-20 | Outpatient (REF) | payer MEDICARE, OTHER ==
[~2018-12-20] MED LIST changes: -ASPI1TAB PO; +ASPI81TA26 PO; +MILK120011 PO; -MILKSUS PO; -SENN1TAB2 PO; +SENN1TAB40 PO
[2018-12-20 19:28] LABS: APPEARANCE, URINE CLEAR (CLEAR); BACTERIA, URINE AUTO NEGATIVE (NEGATIVE); BILIRUBIN, URINE AUTO NEGATIVE (NEGATIVE); BLOOD, URINE BLOOD NEGATIVE (NEGATIVE); COLOR, URINE STRAW (YELLOW); GLUCOSE, URINE (UA) AUTO NEGATIVE (NEGATIVE); KETONE, URINE AUTO NEGATIVE (NEGATIVE); LEUKOCYTE ESTERASE, URINE AUTO NEGATIVE (NEGATIVE); NITRITE, URINE AUTO NEGATIVE (NEGATIVE); PROTEIN, URINE AUTO NEGATIVE (NEGATIVE); RBC, URINE AUTO 0 /HPF (0-3); SPECIFIC GRAVITY URINE AUTO 1.006 (1.002-1.035); SQUAMOUS EPITHELIAL CELL UR AU 0 /HPF (0-6); UROBILINOGEN, URINE AUTO 0.2 mg/dL (0.0-2.0); WBC, URINE AUTO 0 /HPF (0-3)
== END ==
LOC: M LAB REF 18:48
PROVIDERS: ATTEND Family Medicine
DX: N39.0 Urinary tract infection, site not specified (principal)

== ENCOUNTER 2019-02-22 16:07 | Emergency (ER) | payer MEDICARE, OTHER ==
[~2019-02-22] VITALS: Ht 162.6 cm; Wt 53.2 kg
[~2019-02-22 16:07] MED LIST changes: -MELO15TA28; -NORC1TAB7 PO; -TIZA2TA
[2019-02-22] MEDS ORDERED: TIZA2TA (16:17)
[2019-02-22] MEDS ORDERED: MELO15TA28 (16:17)
[2019-02-22] MEDS ORDERED: NORCO, ANEXSIA 5/325MG TABLET (HYDROcodone/ACETAMINOPHEN) PO ONE (17:45)
[2019-02-22] MEDS ORDERED: NORC1TAB7 PO (17:50)
[2019-02-22 18:01] VITALS: BP 163/73
== END 2019-02-22 18:25 | disposition home or self-care (01) ==
LOC: M ED 16:07
DX: M54.5 Low back pain (principal); S32.030A Wedge compression fracture of third lumbar vertebra, initial encounter for closed fracture; X58.XXXA Exposure to other specified factors, initial encounter; N39.0 Urinary tract infection, site not specified; M19.90 Unspecified osteoarthritis, unspecified site; M48.00 Spinal stenosis, site unspecified; Z79.899 Other long term (current) drug therapy

== ENCOUNTER → 2019-02-22 | Outpatient (REF) | payer MEDICARE, OTHER ==
[~2019-02-22] MED LIST changes: +MELO15TA28; +NORC1TAB7 PO; +TIZA2TA
[2019-02-22 17:33] LABS: APPEARANCE, URINE CLEAR (CLEAR); BACTERIA, URINE AUTO NEGATIVE (NEGATIVE); BILIRUBIN, URINE AUTO NEGATIVE (NEGATIVE); BLOOD, URINE BLOOD NEGATIVE (NEGATIVE); COLOR, URINE YELLOW (YELLOW); GLUCOSE, URINE (UA) AUTO NEGATIVE (NEGATIVE); KETONE, URINE AUTO TRACE mg/dL (NEGATIVE); LEUKOCYTE ESTERASE, URINE AUTO NEGATIVE (NEGATIVE); MUCUS, URINE SMALL (NEGATIVE); NITRITE, URINE AUTO NEGATIVE (NEGATIVE); PROTEIN, URINE AUTO NEGATIVE (NEGATIVE); RBC, URINE AUTO 0 /HPF (0-3); SPECIFIC GRAVITY URINE AUTO 1.016 (1.002-1.035); SQUAMOUS EPITHELIAL CELL UR AU 0 /HPF (0-6); UROBILINOGEN, URINE AUTO 0.2 mg/dL (0.0-2.0); WBC, URINE AUTO 1 /HPF (0-3)
== END ==
LOC: M LAB REF 16:21
PROVIDERS: ATTEND Physician Assistant Medical
DX: N39.0 Urinary tract infection, site not specified (principal)

== ENCOUNTER → 2019-03-27 | Outpatient (CLI) | payer MEDICARE, OTHER ==
[~2019-03-27] MED LIST changes: +MELO15TA28; +NORC1TAB7 PO; +TIZA2TA
[2019-03-27 09:21] LABS: HEMATOCRIT 38.9 % (36.0-47.0); HEMOGLOBIN 12.5 g/dl (12.0-15.5); MEAN CORPUSCULAR HEMOGLOBIN 30.7 pg (27.0-33.0); MEAN CORPUSCULAR HGB CONC 32.1 g/dl (32.0-36.5); MEAN CORPUSCULAR VOLUME 95.6 fl (80.0-96.0); PLATELET COUNT, AUTOMATED 202 10^3/uL (150-450); RED BLOOD COUNT 4.07 10^6/uL (4.00-5.40); WHITE BLOOD COUNT 6.7 10^3/uL (4.0-10.0)
[2019-03-27 09:50] LABS: ALBUMIN 3.7 GM/DL (3.2-5.2); ALT/SGPT 29 U/L (12-78); BILIRUBIN,TOTAL 0.4 MG/DL (0.2-1.0); BLOOD UREA NITROGEN 30 MG/DL (7-18); CALCIUM LEVEL 9.6 MG/DL (8.8-10.2); CARBON DIOXIDE LEVEL 28 MEQ/L (21-32); CHLORIDE LEVEL 105 MEQ/L (98-107); CHOLESTEROL LEVEL 246 MG/DL (<200); CHOLESTEROL RISK RATIO 3.416 (<5); CREATININE FOR GFR 0.89 MG/DL (0.55-1.30); GLOMERULAR FILTRATION RATE > 60.0 (>32); GLUCOSE, FASTING 96 MG/DL (70-100); HDL CHOLESTEROL 72 MG/DL (>40); LDL CHOLESTEROL 152 MG/DL (<100); NON-HDL-C 174 MG/DL; POTASSIUM SERUM 4.6 MEQ/L (3.5-5.1); SODIUM LEVEL 143 MEQ/L (136-145); TOTAL PROTEIN 6.5 GM/DL (6.4-8.2); TRIGLYCERIDES LEVEL 108 MG/DL (<150)
[2019-03-27 10:11] LABS: HEMOGLOBIN A1c 5.8 %
--- NOTE | 2019-03-27 12:21 | REP ---
Chest x-ray: Two views. History: Anemia. COPD. Comparison chest x-ray: August 19 1016. Findings: The lungs are hyperinflated but free of infiltrate. Pleural angles are sharp. Heart is enlarged. Cardiothoracic ratio measures 52.7%. Pulmonary vasculature is not increased. The thoracic aorta somewhat tortuous. There are degenerative changes in the thoracic spine. There are new wedge compression fracture deformities at three levels of the thoracic spine as a change from the August 19, 2016 radiograph. There is interval mild wedge compression deformity at L1 as well. The thoracic levels involved include T8, T10, and T11. At T11, there is nearly complete anterior vertebral body height loss. The other wedge compression deformities are mild. Impression: Hyperinflation, cardiomegaly. Multiple new osteoporotic wedge compression fracture deformities in the thoracic and lumbar spine. Complete wedging at T11. Electronically Signed by Doc Milan MD 03/27/2019 09:15 A
[2019-03-27 14:35] LABS: TOTAL 25(OH) VITAMIN D 32.5 NG/ML (30.0-100.0)
--- NOTE | 2019-03-28 18:21 | ECGEPIP ---
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
== END ==
LOC: M LAB 08:19
PROVIDERS: ATTEND Family Medicine
DX: D64.9 Anemia, unspecified (principal); E03.9 Hypothyroidism, unspecified; J44.9 Chronic obstructive pulmonary disease, unspecified; Z79.899 Other long term (current) drug therapy

== ENCOUNTER → 2020-04-25 | Outpatient (CLI) | payer MEDICARE, OTHER ==
[~2020-04-25] MED LIST changes: -MAPA325T2 PO; +MAPA325T8 PO; +ONDA-83 PO; -ONDA4TAB5 PO; +SENN-53 PO; -SENN1TAB40 PO
[2020-04-25 11:57] LABS: HEMATOCRIT 42.8 % (36.0-47.0); HEMOGLOBIN 13.5 g/dl (12.0-15.5); MEAN CORPUSCULAR HEMOGLOBIN 31.8 pg (27.0-33.0); MEAN CORPUSCULAR HGB CONC 31.5 g/dl (32.0-36.5); MEAN CORPUSCULAR VOLUME 100.7 fl (80.0-96.0); PLATELET COUNT, AUTOMATED 254 10^3/uL (150-450); RED BLOOD COUNT 4.25 10^6/uL (4.00-5.40); WHITE BLOOD COUNT 7.1 10^3/uL (4.0-10.0)
[2020-04-25 12:30] LABS: ALBUMIN 3.5 GM/DL (3.2-5.2); ALT/SGPT 19 U/L (12-78); BILIRUBIN,TOTAL 0.5 MG/DL (0.2-1.0); BLOOD UREA NITROGEN 22 MG/DL (7-18); CALCIUM LEVEL 9.4 MG/DL (8.8-10.2); CARBON DIOXIDE LEVEL 31 MEQ/L (21-32); CHLORIDE LEVEL 108 MEQ/L (98-107); CHOLESTEROL LEVEL 263 MG/DL (<200); CHOLESTEROL RISK RATIO 4.174 (<5); CREATININE FOR GFR 0.82 MG/DL (0.55-1.30); GLOMERULAR FILTRATION RATE > 60.0 (>32); GLUCOSE, FASTING 94 MG/DL (70-100); HDL CHOLESTEROL 63 MG/DL (>40); IRON (FE) 104 UG/DL (50-170); LDL CHOLESTEROL 180 MG/DL (<100); NON-HDL-C 200 MG/DL; PERCENT SATURATION 31.7 % (13.2-45.0); POTASSIUM SERUM 4.4 MEQ/L (3.5-5.1); SODIUM LEVEL 143 MEQ/L (136-145); THYROID STIMULATING HORMONE 0.825 uIU/ML (0.358-3.740); TOTAL IRON BINDING CAPACITY 328 UG/DL (250-450); TOTAL PROTEIN 6.8 GM/DL (6.4-8.2); TRIGLYCERIDES LEVEL 100 MG/DL (<150)
[2020-04-25 13:44] LABS: TOTAL 25(OH) VITAMIN D 86.2 NG/ML (30.0-100.0)
== END ==
LOC: M WUC 09:06
PROVIDERS: ATTEND Family Medicine
DX: D64.9 Anemia, unspecified (principal); R53.83 Other fatigue; E03.9 Hypothyroidism, unspecified; Z79.899 Other long term (current) drug therapy

== ENCOUNTER → 2020-11-12 | Outpatient (CLI) | payer MEDICARE, OTHER ==
[~2020-11-12] MED LIST changes: -PEG1POW PO; +POLY17PO18 PO
[2020-11-12 09:15] LABS: HEMATOCRIT 41.7 % (36.0-47.0); HEMOGLOBIN 13.4 g/dl (12.0-15.5); MEAN CORPUSCULAR HEMOGLOBIN 31.7 pg (27.0-33.0); MEAN CORPUSCULAR HGB CONC 32.1 g/dl (32.0-36.5); MEAN CORPUSCULAR VOLUME 98.6 fl (80.0-96.0); PLATELET COUNT, AUTOMATED 239 10^3/uL (150-450); RED BLOOD COUNT 4.23 10^6/uL (4.00-5.40); WHITE BLOOD COUNT 6.6 10^3/uL (4.0-10.0)
[2020-11-12 09:54] LABS: ALBUMIN 3.6 GM/DL (3.2-5.2); ALT/SGPT 31 U/L (12-78); BILIRUBIN,TOTAL 0.6 MG/DL (0.2-1.0); BLOOD UREA NITROGEN 23 MG/DL (7-18); CALCIUM LEVEL 9.2 MG/DL (8.8-10.2); CARBON DIOXIDE LEVEL 31 MEQ/L (21-32); CHLORIDE LEVEL 107 MEQ/L (98-107); CHOLESTEROL LEVEL 230 MG/DL (<200); CHOLESTEROL RISK RATIO 3.484 (<5); CREATININE FOR GFR 0.82 MG/DL (0.55-1.30); GLOMERULAR FILTRATION RATE > 60.0 (>32); GLUCOSE, FASTING 98 MG/DL (70-100); HDL CHOLESTEROL 66 MG/DL (>40); HEMOGLOBIN A1c 5.4 %; LDL CHOLESTEROL 137 MG/DL (<100); NON-HDL-C 164 MG/DL; POTASSIUM SERUM 4.7 MEQ/L (3.5-5.1); SODIUM LEVEL 141 MEQ/L (136-145); TOTAL PROTEIN 6.8 GM/DL (6.4-8.2); TRIGLYCERIDES LEVEL 134 MG/DL (<150)
[2020-11-12 10:04] LABS: TOTAL 25(OH) VITAMIN D 66.1 NG/ML (30.0-100.0)
== END ==
LOC: M LAB 08:49
PROVIDERS: ATTEND Family Medicine
DX: D64.9 Anemia, unspecified (principal); E78.00 Pure hypercholesterolemia, unspecified

== ENCOUNTER 2020-11-22 05:00 | Emergency (ER) | payer MEDICARE, OTHER ==
[~2020-11-22] VITALS: Ht 162.6 cm; Wt 50.0 kg
[2020-11-22] MEDS ORDERED: SIMV10TA21 PO (05:22)
[2020-11-22] MEDS ORDERED: ACET-897 PO (05:24)
[2020-11-22] MEDS ORDERED: CALCTAB89 PO (05:24)
[2020-11-22] MEDS ORDERED: MIRA1POW3 PO (05:25)
[2020-11-22] MEDS ORDERED: ACETAMINOPHEN TAB 650MG DOSE (2X325MG) PO ONE (05:30)
[2020-11-22 06:07] LABS: BASO % 0.3 % (0.0-1.0); EOS # 0.2 10^3/uL (0.0-0.5); EOS % 2.3 % (0.0-3.0); HEMATOCRIT 39.8 % (36.0-47.0); HEMOGLOBIN 12.8 g/dl (12.0-15.5); LYMPH # 2.3 10^3/uL (1.5-5.0); LYMPH % 34.7 % (24.0-44.0); MEAN CORPUSCULAR HEMOGLOBIN 31.4 pg (27.0-33.0); MEAN CORPUSCULAR HGB CONC 32.2 g/dl (32.0-36.5); MEAN CORPUSCULAR VOLUME 97.5 fl (80.0-96.0); MONO # 0.7 10^3/uL (0.0-0.8); NEUTROPHILS # 3.4 10^3/uL (1.5-8.5); NEUTROPHILS % 52.5 % (36.0-66.0); PLATELET COUNT, AUTOMATED 230 10^3/uL (150-450); RED BLOOD COUNT 4.08 10^6/uL (4.00-5.40); WHITE BLOOD COUNT 6.5 10^3/uL (4.0-10.0)
[2020-11-22 06:34] LABS: ALBUMIN 3.4 GM/DL (3.2-5.2); ALT/SGPT 22 U/L (12-78); BILIRUBIN,DIRECT 0.1 MG/DL (0.0-0.2); BILIRUBIN,TOTAL 0.5 MG/DL (0.2-1.0); BLOOD UREA NITROGEN 25 MG/DL (7-18); CALCIUM LEVEL 9.4 MG/DL (8.8-10.2); CARBON DIOXIDE LEVEL 28 MEQ/L (21-32); CHLORIDE LEVEL 111 MEQ/L (98-107); CPK CREATINE PHOSPHOKINASE 55 U/L (26-192); CREATININE FOR GFR 0.88 MG/DL (0.55-1.30); GLOMERULAR FILTRATION RATE > 60.0 (>32); GLUCOSE, FASTING 99 MG/DL (70-100); LIPASE 336 U/L (73-393); MB/CK RELATIVE INDEX 1.82 (< OR =4); POTASSIUM SERUM 4.1 MEQ/L (3.5-5.1); SODIUM LEVEL 142 MEQ/L (136-145); THYROID STIMULATING HORMONE 0.979 uIU/ML (0.358-3.740); TOTAL PROTEIN 6.4 GM/DL (6.4-8.2); TROPONIN I < 0.02 NG/ML (< 0.10)
[2020-11-22 06:43] LABS: ERYTHROCYTE SEDIMENTATION RATE 16 mm/hr (0-30)
--- NOTE | 2020-11-22 07:40 | REP ---
INDICATION: pain. COMPARISON: None. TECHNIQUE: Bilateral shoulder radiographs. Seven views are presented. FINDINGS: There is diffuse osteoporosis. There is old posttraumatic deformity of the surgical neck of the humerus on the right. Glenohumeral and acromioclavicular joints are normally aligned on the right. There is mild superolateral spurring of the acromion process on the right. There is mild inferior glenoid spurring and narrowing of the AC joint is seen consistent with osteoarthritis. No acute fracture or subluxation is seen. Multiple views of the left shoulder demonstrate normal alignment of the glenohumeral and acromioclavicular joints. There is inferior glenohumeral spurring and mild narrowing of the AC joint. No fracture or subluxation is seen. IMPRESSION: Bilateral osteoarthritic changes. Diffuse osteopenia. No acute bony abnormality. <Electronically signed by Sae Milan > 11/22/20 0720
--- NOTE | 2020-11-22 07:42 | REP ---
INDICATION: pain. COMPARISON: Comparison chest x-ray 27 March 2019. TECHNIQUE: Portable upright AP chest radiograph. FINDINGS: The lungs are symmetrically aerated and free of infiltrate. Pleural angles are sharp. There is minimal linear fibrosis in the left base. Pulmonary vasculature is not increased. Heart is mildly enlarged unchanged. EKG electrodes are noted. The thoracic aorta is calcific and slightly tortuous. Wedging is seen in several lower thoracic spine levels. This is similar to the prior study.. IMPRESSION: Cardiomegaly. Mild linear fibrosis left base. No active cardiopulmonary disease seen.. <Electronically signed by Sae Milan > 11/22/20 [id number]
[2020-11-22 09:45] VITALS: BP 100/55
--- NOTE | 2020-11-22 18:38 | ECGEPIP ---
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
== END 2020-11-22 09:59 | disposition home or self-care (01) ==
LOC: M ED 05:00
DX: M25.519 Pain in unspecified shoulder (principal); M19.011 Primary osteoarthritis, right shoulder; M19.012 Primary osteoarthritis, left shoulder; M81.0 Age-related osteoporosis without current pathological fracture; F03.90 Unspecified dementia, unspecified severity, without behavioral disturbance, psychotic disturbance, mood disturbance, and anxiety; Z88.8 Allergy status to other drugs, medicaments and biological substances; Z79.899 Other long term (current) drug therapy

== ENCOUNTER → 2020-12-02 | Outpatient (CLI) | payer MEDICARE, OTHER ==
[~2020-12-02] MED LIST changes: +ACET-897 PO; +CALCTAB89 PO; +MIRA1POW3 PO; +SIMV10TA21 PO
[2020-12-02 12:45] LABS: CALCIUM LEVEL 9.8 MG/DL (8.8-10.2)
[2020-12-02 13:03] LABS: TOTAL 25(OH) VITAMIN D 63.3 NG/ML (30.0-100.0)
== END ==
LOC: M WUC 11:26
PROVIDERS: ATTEND Internal Medicine Endocrinology, Diabetes & Metabolism
DX: M81.0 Age-related osteoporosis without current pathological fracture (principal); E55.9 Vitamin D deficiency, unspecified; Z79.899 Other long term (current) drug therapy

== ENCOUNTER → 2021-02-10 | Outpatient (CLI) | payer MEDICARE, OTHER ==
--- NOTE | 2021-02-10 11:50 | REP ---
INDICATION: COPD. COMPARISON: Multiple the latest 11/22/2020 AP supine TECHNIQUE: PA and lateral FINDINGS: There is mild cardiomegaly status quo. Lung harrison are clear. No acute patchy parenchymal opacities or pleural effusions have developed. There is a hiatal hernia. The osseous structures stable. Once again, there are multiple thoracic and probable lumbar vertebral body compression fractures of various grades. IMPRESSION: There is no acute cardiopulmonary disease. <Electronically signed by Nathan Arguelles > 02/10/21 [id number]
--- NOTE | 2021-02-10 13:42 | REP ---
INDICATION: COPD. COMPARISON: Comparison right hip radiographs are from September 01, 2016.. TECHNIQUE: AP and frogleg views of each hip, total four views. FINDINGS: A right hip arthroplasty is seen in place. There is mild heterotopic bone formation adjacent to the greater trochanter and at the superolateral aspect of the periarticular soft tissues. Prosthetic hip components are normally aligned. There is a linear pattern of sclerosis along the upper sacrum on the right side. This patient has diffuse osteopenia. The sacral sclerosis is suggestive of healing change in a a sacral insufficiency fracture. The sclerosis is not apparent on the prior study. AP and frogleg views of the left hip show smooth rounded femoral head. There is mild superior hip joint space narrowing consistent with early osteoarthritis. There is dystrophic calcification adjacent to the greater trochanter which may reflect tendinitis or bursitis. No bony destructive lesion. IMPRESSION: 1. Status post right hip arthroplasty. 2. Healing sacral insufficiency fracture on the right. 3. Mild osteoarthritis left hip. 4. Dystrophic calcification in the soft tissues adjacent to the greater trochanter on the left may reflect bursitis or tendinitis. 5. Diffuse osteopenia <Electronically signed by Sae Milan > 02/10/21 [id number]
== END ==
LOC: M RAD 11:01
PROVIDERS: ATTEND Family Medicine
DX: M25.551 Pain in right hip (principal); M25.552 Pain in left hip; J44.9 Chronic obstructive pulmonary disease, unspecified